=== PATIENT | male | born 1965 | race Two or more races ===

== ENCOUNTER 2024-11-30 10:28 | Outpatient (REF) | payer OTHER, SELFPAY ==
[2024-11-30 18:19] LABS: MANUAL DIFF FLAG NO
[2024-11-30 18:40] LABS: Appearance Urine Turbid; Glucose Urine UA Negative (Negative); Hematocrit 46.1 % (42.0-52.0); Hemoglobin 15.3 g/dl (14.0-18.0); Imm Gran Abs Auto 0.03 X10*3/uL (0.00-0.03); Imm Gran Pct Auto 0.4 % (0.0-0.4); Lymphocytes Absolute Auto 1.8 X10*3/uL (1.2-4.9); Mean Corpuscular HGB Conc 33.2 g/dl (31.0-36.0); Mean Corpuscular Hemoglobin 26.7 pg (27.0-33.0); Mean Corpuscular Volume 80.6 fL (80.0-98.0); NRBC Abs Auto 0.000 X10*3/uL (0.0-0.012); NRBC Pct Auto 0.0 /100WBC (0.0-0.2); PH 5.0 (5.0-9.0); Platelet Count 146 X10*3/uL (160-400); Red Blood Count 5.72 X10*6/uL (4.60-5.80); Specific Gravity - Urine 1.025 (1.005-1.025); White Blood Count 7.4 X10*3/uL (4.8-10.8)
[2024-11-30 18:51] LABS: Alanine Aminotransferase 55 U/L (0-40); Albumin Level 4.3 g/dL (3.5-5.0); Alkaline Phosphatase 67 U/L (39-117); Anion Gap 13 (12-20); Aspartate Amino Transferase 46 U/L (5-37); Blood Urea Nitrogen 17 mg/dL (9-16); Calcium 9.1 mg/dL (8.4-10.2); Carbon Dioxide 21 mmol/L (22-29); Chloride 109 mmol/L (96-108); Cholesterol 130 mg/dL (<200); Estimated Glomerular Filt Rate > 60; HDL Cholesterol 38 mg/dL (>40); Magnesium 2.0 mg/dL (1.6-2.6); Potassium 4.1 mmol/L (3.3-5.1); Sodium 139 mmol/L (135-145); Total Protein 7.6 g/dL (6.5-8.0); Triglycerides 79 mg/dL (<150)
[2024-12-01 07:30] LABS: Total Hemoglobin (HGBA1C) 3956.0489 umol/L
[2024-12-01 08:47] LABS: HBsAGNum1 0.56 S/CO (0.00-0.99); HIV Num 1 0.05 S/CO (0.00-0.99); Hepatitis B Surface Antigen Negative (Negative); ~HepC Num1 14.75 S/CO (0.00-0.79); ~Hepatitis B Surface Antibody REACTIVE (Nonreactive); ~Hepatitis C Antibody Reactive (Nonreactive)
[2024-12-04 09:28] LABS: VITAMIN D (1,25 OH) D3 22 pg/mL; Vit D (1,25-Dihydroxy) Total 22 pg/mL (18-72); Vitamin D (1,25 OH) D2 <8 pg/mL
== END 2024-11-30 10:29 | disposition home or self-care (01) ==
LOC: HO.HKASLDS 10:28
PROVIDERS: PCP Student in an Organized Health Care Education/Training Program; Visit Provider Student in an Organized Health Care Education/Training Program
DX: Z76.89 Persons encountering health services in other specified circumstances (principal); Z01.89 Encounter for other specified special examinations; Z02.89 Encounter for other administrative examinations; I25.10 Atherosclerotic heart disease of native coronary artery without angina pectoris; E66.3 Overweight; I25.2 Old myocardial infarction; R00.1 Bradycardia, unspecified; R06.02 Shortness of breath; Z68.29 Body mass index [BMI] 29.0-29.9, adult; Z87.891 Personal history of nicotine dependence
CPT/HCPCS: 36415; 80053; 80061; 81003; 82652; 83036; 83735; 84443; 85025; 86706; 86803; 87340; 87389

== ENCOUNTER 2024-11-30 10:28 | Outpatient (AMB) | payer OTHER, SELFPAY ==
--- NOTE | 2024-11-30 10:38 | A.OFFPC_ITS ---
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 Crop Specialist Required: No Accompanied by: Self / Same As Patient Allergies No Known Allergies Allergy (Verified 11/30/24 10:41) Tobacco use date assessed: 11/30/24 Dental Screening Dental Screen Date: 11/30/24 Did you have a dental visit in the last 12 months?: Yes Did you have a dental problem in the last 6 months where you did not have access to dental care?: No Was dental information given to patient?: Patient has dentist HPI HPI Comments History of Present Illness Details History of Present Illness The patient is a 59-year-old male presenting with follow-up for coronary artery disease, recent inferior STEMI, respiratory symptoms, and health maintenance concerns. Coronary Artery Disease (CAD): - Recent inferior STEMI managed with pro ximal RCA stent. Awaiting further intervention. Inferior ST-Elevation Myocardial Infarction (STEMI): - Managed with RCA stent following diagn osis. Gastroesophageal Reflux Disease (GERD): - Controlled with omeprazole. Hyperlipidemia: - Treated with atorvastatin. Prediabetes: - Monitoring in place. Possible Obstructive Sleep Apnea (GONZALES): - Sleep study recommended to confirm analilia gnosis. nicotine dependence history quit [facility] Health Maintenance - Outpatient sleep study recommended for possible obstructive sleep apnea. - Cardiovascular health continues to be supported through follow-up for staged PCI for further management of CAD. - Encouragement for smoking cessation co ntinues with support through nicotine replacement therapy. Review of Systems - Respiratory: Reports dyspnea on exerti on and during sleep. Denies chest pain. 10-point ROS reviewed and negative excep t as noted in HPI Allergies - No known allergies reported. Medications - Clopidogrel 75 mg for CAD. - Aspirin 81 mg for CAD. - Atorvastatin 80 mg for hyperlipidemia. - Omeprazole 40 mg for GERD. - Nicotine patch 7 mg for smoking cessat ion. Medication History - Ticagrelor 90 mg, discontinued due to dyspnea. Current Substance Use - Tobacco: Smokes approximately one pack per week. Substance Use History - Tobacco: History of smoking since the age of 15, with current use reported at approximately one pack per week. Past Medical History - Coronary Artery Disease (CAD) - Inferior ST-Elevation Myocardial Infar ction (STEMI) - Gastroesophageal Reflux Disease (GERD) - Hyperlipidemia - Prediabetes Past Surgical History - Proximal RCA stent placement. 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 - Substance Use: History and current tob acco use is documented. Physical Exam General: No apparent distress. Alert and oriented x 3. Patient reports a history of severe heart attack on November 03 and has been experiencing shortness of breath since then. Head: Normocephalic, atraumatic Eyes: Pupils equal, round, and reactive to light. Extraocular movements intact Throat: O ropharynx clear. Mucus membranes moist Neck: Supple. No l eft anterior descending artery distention. No jugular vein distention. No bruit. Cardiovascular: Regular rate and rhythm. Normal S1 and S2. History of myocardial infarction (VA) with stent placement. Patient reports tenderness in the chest area. Cardiology referral planned for potential second stent placement. murmurs, rubs, or gallops Lungs: Clear to auscultation bilaterally. Breath sounds equal bilaterally. No rales, ronchi, or wheezes. Patient reports shortness of breath and has a history of smoking. Pulmonary function test and sleep study planned. Abdomen: Non-tender. Non-distended. Bowel sounds auscultated. No hepatosplenomegaly. No mass/rebound/guarding Extremities: No c lubbing, cyanosis, and edema. 2+ pulses Neuro: Central nerves II-XII grossly intact. Motor/sensory intact. Reflexes 2. Gait normal Skin: Warm, dry, and intact. No rash. Discussion Notes I emphasized the patient's need for follow-up regarding coronary artery disease with cardiology to complete staged PCI to optimize vascular health. The patient was informed about the recommendation for a sleep study due to the possibility of obstructive sleep apnea, given his ongoing respiratory concerns. We discussed the adaptation from ticagrelor to clopidogrel due to dyspnea and encouraged continued aspirin and atorvastatin for coronary artery disease management. I advised smoking cessation benefits and discussed the continued use of nicotine patches for support. Follow-up appointments were arranged, and the appropriate referrals were made. Plan 1. Coronary Artery Disease (Cad) - Continue aspirin and atorvastatin. - Schedule follow-up for staged PCI. 2. Gastroesophageal Reflux Disease (Gerd ) - Continue omeprazole 40 mg daily. 3. Hyperlipidemia - Keep on atorvastatin 80 mg. 4. Tobacco Use - Smoking cessation encouraged; use of n icotine patch to continue. 5. Inferior St-Elevation Myocardial Infa rction (Stemi) - Early Childhood Education Specialist follow-up critical for tr eatment plan. 6. Possible Obstructive Sleep Apnea (Gonzales ) - Recommend outpatient sleep study. 7. Gastroesophageal Reflux Disease Gerd - Continue management with omeprazole. 8. Possible Obstructive Sleep Apnea Gonzales - Arrangements made for a sleep study. Treatment Summary Anticapatory Guidance - Lifestyle modifications suggested incl ude tobacco cessation strategies and adherence to cardiovascular health protocols. - Awareness of respiratory symptoms and compliance with follow-up tests are emphasized. Patient Instructions - Take aspirin, atorvastatin, and omepra zole as directed by your doctor. - See a life enrichment specialist soon to check t he stents. - Schedule an overnight sleep test to [facility] for sleep apnea. - Work towards quitting smoking and keep using the nicotine patch as recommended. [facility] Family History (Updated 11/30/24 @ 11:01 by Janeen Briggs MA) Father Cerebral hemorrhage Mother Heart disease Social History (Updated 11/30/24 @ 10:43 by Janeen Briggs MA) Housing: Apartment Alcohol intake: current Alcohol intake frequency: does not drink Patient Tobacco Use Status: Never used Tobacco service: No Current occupational status: employed Cognitive needs: No Hearing needs: No Vision needs: Yes (contact) Questionnaire PHQ-9 Over the last 2 weeks, how often have you been bothered by any of the following problems? 1. Little interest or pleasure in doing things: not at all 2. Feeling down, depressed, or hopeless: not at all 3. Trouble falling or staying asleep, or sleeping too much: not at all 4. Feeling tired or having little energy: not at all 5. Poor appetite or overeating: not at all 6. Feeling bad about yourself - or that you are a failure or have let yourself or your family down: not at all 7. Trouble concentrating on things, such as reading the newspaper or watching television: not at all 8. Moving or speaking so slowly that other people could have noticed. Or the opposite - being so fidgety or restless that you have been moving around a lot more than usual: not at all 9. Thoughts that you would be better off or of hurting yourself in some way: not at all Total score: 0 Source: Developed by Drs. Rafal Stacy, Pilar hC, Cesar Chaudhry and colleagues, with an educational elsa from [employer]. Thrive Questionnaire Date Thrive assessed: 11/30/24 I am a: Patient What is your living situation today?: I have a steady place to live Within the past 12 months, did the food you bought not last and you didn't have the money to get more?: Never true Within the past 12 months, did you worry whether your food would run out before you got money to buy more?: Never true Do you have trouble paying for medicines?: No Do you have trouble getting transportation to medical appointments?: No Do you have trouble paying your heating and electricity bill?: No Do you have trouble taking care of your child, family member or friend?: No Do you have trouble with day-to-day activities such as bathing, preparing meals, shopping, managing finances, etc.?: No Are you currently unemployed and looking for a job?: No Are you interested in more education?: No Please select the resources that you would like help with: None Currently or been in a relationship where the following occur: No concerns reported THRIVE Score: 0 AUDIT C Alcohol Use Questionnaire (AUDIT-C) 1. How often do you have a drink containing alcohol?: Never 3. How often do you have six or more drinks on one occasion?: Never Total Score: 0 DEEPIKA-7 AMB Questionnaire DEEPIKA-7 Date DEEPIKA - 7 assessed: 11/30/24 Feeling nervous, anxious, or on edge: 0 = Not at all Not being able to stop or control worryin = Not at all Worrying too much about different things: 0 = Not at all Trouble relaxin = Not at all Being so restless that it is hard to sit still: 0 = Not at all Becoming easily annoyed or irritable: 0 = Not at all Feeling afraid as if something awful might happen: 0 = Not at all Total DEEPIKA-7 score (0-4 normal; 5-9 mild; 10-14 moderate; 15-21 severe): 0 Source: Developed by Drs. Rafal Stacy, Pilar Ch, Cesar Chaudhry and colleagues, with an educational elsa from [employer]. Physical exam (Primary Care) Vital Signs: Last Vital Signs Temp 97.7 F 11/30/24 11:03 Pulse 58 11/30/24 11:03 Resp 16 11/30/24 11:03 BP 120/78 11/30/24 11:03 Pulse Ox 96 11/30/24 11:03 Oxygen Delivery Method Room Air 11/30/24 11:03 BMI result Body Mass Index 29.9 Tobacco/Smoking Status: Tobacco use Status Tobacco use date assessed 11/30/24 11/30/24 10:46 Patient Tobacco Use Status Never used Tobacco 11/30/24 10:46 PHQ-9: PHQ-9 Score PHQ-9: Total score 0 11/30/24 10:46 Thrive Assessment: Date of Thrive Assessment Date Thrive assessed 11/30/24 11/30/24 10:46 Currently or been in a relationship where the following occur: No concerns reported Coding Level of Care Code New Pt Level 3 (27207) Diagnoses Encounter to establish care Z76.89 Routine lab draw Z01.89 Overweight (BMI 25.0-29.9) E66.3 CAD in [place] artery I25.10 History of myocardial infarct at age less than 60 years I25.2 Bradycardia R00.1 Encounter for completion of form with patient Z02.89 Shortness of breath R06.02 Dyspnea type: shortness of breath History of nicotine dependence Z87.891 Assessment & Plan Assessment & Plan (1) Encounter to establish care: Code(s): Z76.89 - Persons encountering health services in other specified circumstances (2) Routine lab draw: Code(s): Z01.89 - Encounter for other specified special examinations (3) Overweight (BMI 25.0-29.9): Code(s): E66.3 - Overweight (4) CAD in [place] artery: Code(s): I25.10 - Atherosclerotic heart disease of [place] coronary artery without angina pectoris (5) History of myocardial infarct at age less than 60 years: Code(s): I25.2 - Old myocardial infarction (6) Bradycardia: Code(s): R00.1 - Bradycardia, unspecified (7) Encounter for completion of form with patient: Code(s): Z02.89 - Encounter for other administrative examinations (8) Dyspnea: Code(s): R06.00 - Dyspnea, unspecified Qualifiers: Dyspnea type: shortness of breath Qualified Code(s): R06.02 - Shortness of breath (9) History of nicotine dependence: Code(s): Z87.891 - Personal history of nicotine dependence Plan Orders: Orders Complete Blood Count Auto Diff Today Z - Persons encountering health services in other specified circumstances Comprehensive Met. Panel Today Z. - Persons encountering health services in other specified circumstances Lipid Panel Today - Persons encountering health services in other specified circumstances Vitamin D 1,25 dihydroxy Today . - Persons encountering health services in other specified circumstances PFT pulmonary function test Today R06.02 - Shortness of breath, Z. - Persons encountering health services in other specified circumstances Hemoglobin A1c Today . - Persons encountering health services in other specified circumstances Hepatitis B Surface Antibody Today . - Persons encountering health services in other specified circumstances Hepatitis B Surface Antigen Today . - Persons encountering health services in other specified circumstances Hepatitis C Antibody Today . - Persons encountering health services in other specified circumstances HIV Ab/Ag Today . - Persons encountering health services in other specified circumstances Magnesium Today Z. - Persons encountering health services in other specified circumstances TSH reflex Free T4 Today . - Persons encountering health services in other specified circumstances UA CC w/rflx Micro + Cult Today Z - Persons encountering health services in other specified circumstances Referrals Sleep Medicine Referral I25.10 - Atherosclerotic heart disease of [place] coronary artery without angina pectoris, I25.2 - Old myocardial infarction, R06.02 - Shortness of breath, Z76.89 - Persons encountering health services in other specified circumstances Cardiology Referral I25.10 - Atherosclerotic heart disease of [place] coronary artery without angina pectoris, I25.2 - Old myocardial infarction, R00.1 - Bradycardia, unspecified, Z76.89 - Persons encountering health services in other specified circumstances Medications: New atorvastatin (Lipitor) 80 mg PO BEDTIME 1 tab 0RF
[2024-11-30 11:03] VITALS: BP 120/78; PULSE 58; RESP 16; TEMP 36.5; O2SAT 96; BMI 29.9
--- OUTSIDE RECORDS SUMMARY | 2024-11-30 12:45 | XMS_ITS | Patient Health Record ---
Author Organization [facility] [place] Address [address] [address] [facility] [address] [place] [address] Support Name Relationship Address Phone DALIA BAEZ Guarantor Unknown [phone] Reason For Referral No Information Plan Of Treatment No Information Insurance Providers Payer Name Payer Address Payer Phone Subscriber Number Group Number Insured Name Patient Relationship to Insured Coverage Start Date Coverage End Date [facility] [address] [place] [address] [phone] [id number] DALIA BAEZ Self - patient is the insured
--- OUTSIDE RECORDS SUMMARY | 2024-11-30 12:46 | XMS_ITS | Patient Health Record ---
Author Organization [facility] Address [address] [place] [address] Care Team Providers Care Candy Vendor Name Role Phone Raymon Castle Primary Care Provider Reason For Referral No Information Plan Of Treatment No Information Insurance Providers Payer Name Payer Address Payer Phone Subscriber Number Group Number Insured Name Patient Relationship to Insured Coverage Start Date Coverage End Date [place] C3 [address] [place], [place] [id number] [place] Self - patient is the insured 2
== END 2024-11-30 11:44 | disposition home or self-care (01) ==
LOC: HO.HMCFMS 10:28
PROVIDERS: PCP Student in an Organized Health Care Education/Training Program; Visit Provider Student in an Organized Health Care Education/Training Program
DX: R10.32 Left lower quadrant pain (principal); I25.10 Atherosclerotic heart disease of native coronary artery without angina pectoris; I25.2 Old myocardial infarction; R00.1 Bradycardia, unspecified; E66.3 Overweight; Z87.891 Personal history of nicotine dependence

== ENCOUNTER 2024-12-09 13:29 | Outpatient (REF) | payer OTHER, SELFPAY ==
[2024-12-10 18:09] LABS: HCV RNA PCR Qn <1.18 NOT DETECTED Log IU/mL (NOT DETECTED); HCV RNA PCR Qn <15 NOT DETECTED IU/mL (NOT DETECTED)
== END 2024-12-09 13:30 | disposition home or self-care (01) ==
LOC: HO.HKASLDS 13:29
PROVIDERS: PCP Student in an Organized Health Care Education/Training Program; Visit Provider Student in an Organized Health Care Education/Training Program
DX: R76.8 Other specified abnormal immunological findings in serum (principal); E11.9 Type 2 diabetes mellitus without complications; I25.2 Old myocardial infarction; R71.8 Other abnormality of red blood cells; D69.6 Thrombocytopenia, unspecified; D72.10 Eosinophilia, unspecified; R73.09 Other abnormal glucose; R74.8 Abnormal levels of other serum enzymes; E78.6 Lipoprotein deficiency
CPT/HCPCS: 36415; 87522

== ENCOUNTER 2024-12-09 13:29 | Outpatient (AMB) | payer OTHER, SELFPAY ==
--- NOTE | 2024-12-09 13:30 | A.OFFPC_ITS ---
Vital Signs 12/09/24 13:34 Height 5 ft 4.76 in Weight 183 lb 4 oz BMI 30.7 BP 130/80 Blood Pressure Location Lt brachial Position Sitting Respiration 16 Pulse 65 Pulse Source Pulse Oximeter Temp 98.3 F Temp Source Oral Pulse Oximetry (%) 96 Oxygen Delivery Method Room Air Intake Visit Reasons: 1 week follow up Intake Note: pt had a heart attack. Director Funds Development Required: No Accompanied by: Self / Same As Patient Allergies No Known Allergies Allergy (Verified 12/09/24 13:30) Tobacco use date assessed: 11/30/24 Dental Screening Dental Screen Date: 11/30/24 Did you have a dental visit in the last 12 months?: Yes Did you have a dental problem in the last 6 months where you did not have access to dental care?: No Was dental information given to patient?: Patient has dentist HPI HPI Comments History of Present Illness Details History of Present Illness The patient is a 59-year-old male presenting with diabetes management and assessment for potential hepatitis C reactivity. Type 2 Diabetes Mellitus: - Elevated A1c at 6.5%; random glucose a t 124 mg/dL. - Previous medications include aspirin, atorvastatin, and clopidogrel. - Concerns over management of diabetes p ost-myocardial infarction with agreed introduction of metformin. Hepatitis C (history of): - Previous positive test for hepatitis C ; current status unclear, pending reevaluation. - Asymptomatic and without indications o f active liver disease. Status Post Myocardial Infarction: - Currently on aspirin, atorvastatin, an d clopidogrel. - No reported angina or cardiac symptoms . Review of Systems - General: Reports feelings of tiredness ; denies changes in daily activity levels. - HEENT: Denies headache, vision changes , or hearing loss. - Respiratory: Denies dyspnea, cough, or wheezing. - Cardiovascular: Denies chest pain or p alpitations; reports past myocardial infarction. - Gastrointestinal: Denies abdominal leonides n or change in bowel habits. - Genitourinary: Denies dysuria or hemat uria. - Endocrine: Reports new diagnosis of di abetes. - Skin: Denies rashes or lesions. - Neuro: Denies dizziness or changes in cognition. - Psych: Reports some anxiety around hea lth issues; denies depression or significant mood disorders. 10-point ROS reviewed and negative excep t as noted in HPI Past Medical History - Myocardial Infarction - Medications: aspirin, atorvastatin, cl opidogrel Health Maintenance - Cardiology follow-up pending. - Scheduled for a sleep medicine consult ation and pulmonary function tests. - Laboratory monitoring for diabetes man agement every three months recommended. Physical Exam - General- Well-appearing, in no acute d istress. - Vitals- Within normal limits. - HEENT- Normocephalic, atraumatic. PERR LA, EOMI. Clear conjunctiva, anicteric sclera. - Neck- Supple, no lymphadenopathy. - Cardiovascular- Regular rate and rhyth m, normal S1/S2. No murmurs, rubs, or gallops. - Respiratory- Lungs clear to auscultati on bilaterally. - Abdomen- Soft, non-tender, non-distend ed. Normoactive bowel sounds. - MSK- Full range of motion, normal gait . - Skin- Warm, dry, intact. - Neuro- Alert and oriented x3. Cranial nerves II-XII intact. - Psych- Appropriate mood and affect. Plan 1. encounter for laboratory results 2. red blood cell abnormality 3. low platelet count 4. eosinophilia 5. abnormal chemistry 6. elevated glucose 7. diabetes type 2 - Start metformin, monitor blood glucose , and adjust lifestyle accordingly. 8. elevated liver enzymes 9. low HDL 10. hepatitis-C positive conuct further blood analysis for active status and consider liver ultrasound. 11. Status Post Myocardial Infraction - Maintain current medications and monit or cardiac health. Discussion Notes I discussed with the patient the diagnosis of Type 2 Diabetes Mellitus and the necessity of introducing metformin as a treatment. I explained how metformin works to manage blood glucose levels and addressed potential side effects. We reviewed the implications of the elevated A1c level and the importance of lif estyle modifications, including proper diet and exercise. Regarding hepatitis C, I informed the patient that additional blood tests would determine the current status. If active hepatitis C is present, I would evaluate and treat accordingly. I reassured the patient that their cardiovascular medications would not interact with the new diabetes treatment. We also scheduled blood monitoring every three months to assess diabetes management. An ultrasound of the liver is suggested but pending further bloodwork outcomes. Follow-up discussions included liver enzyme monitoring due to the patient's history of hepatitis C. Patient Instructions - Begin taking metformin as prescribed, one in the morning and one at night. - Monitor blood sugar levels as directed and report any unusual symptoms. - Maintain a balanced diet and increase physical activity?consider a maple products maker consult for guidance. - Provide a blood sample for hepatitis C evaluation today. - Await contact from the clinic to sched ule an ultrasound for your liver. - Continue current cardiac medications a nd monitor for excessive bruising or bleeding. - Follow up with the clinic in three mon ths for diabetes management assessment. - Contact the clinic with any concerns a bout new medication side effects or unexpected symptoms. PFSH Family History Father Cerebral hemorrhage Mother Heart disease Social History Housing: Apartment Alcohol intake: current Alcohol intake frequency: does not drink Patient Tobacco Use Status: Never used Tobacco service: No Current occupational status: employed Cognitive needs: No Hearing needs: No Vision needs: Yes (contact) Questionnaire PHQ-9 Over the last 2 weeks, how often have you been bothered by any of the following problems? 1. Little interest or pleasure in doing things: several days 2. Feeling down, depressed, or hopeless: not at all 3. Trouble falling or staying asleep, or sleeping too much: nearly every day 4. Feeling tired or having little energy: several days 5. Poor appetite or overeating: not at all 6. Feeling bad about yourself - or that you are a failure or have let yourself or your family down: not at all 7. Trouble concentrating on things, such as reading the newspaper or watching television: several days 8. Moving or speaking so slowly that other people could have noticed. Or the opposite - being so fidgety or restless that you have been moving around a lot more than usual: not at all 9. Thoughts that you would be better off or of hurting yourself in some way: not at all Total score: 6 Source: Developed by Drs. Rafal Stacy, Pilar Ch, Cesar Chaudhry and colleagues, with an educational elsa from [employer]. Thrive Questionnaire Date Thrive assessed: 11/30/24 I am a: Patient What is your living situation today?: I have a steady place to live Within the past 12 months, did the food you bought not last and you didn't have the money to get more?: Often true Within the past 12 months, did you worry whether your food would run out before you got money to buy more?: Often true Do you have trouble paying for medicines?: I choose not to answer this question Do you have trouble getting transportation to medical appointments?: No Do you have trouble paying your heating and electricity bill?: No Do you have trouble taking care of your child, family member or friend?: No Are you currently unemployed and looking for a job?: No Are you interested in more education?: Yes Please select the resources that you would like help with: None Currently or been in a relationship where the following occur: No concerns reported THRIVE Score: 2 AUDIT C Alcohol Use Questionnaire (AUDIT-C) 1. How often do you have a drink containing alcohol?: Never 3. How often do you have six or more drinks on one occasion?: Never Total Score: 0 DEEPIKA-7 AMB Questionnaire DEEPIKA-7 Date DEEPIKA - 7 assessed: 11/30/24 Feeling nervous, anxious, or on edge: 1 = Several days Not being able to stop or control worryin = More than half the days Worrying too much about different things: 1 = Several days Trouble relaxin = Not at all Being so restless that it is hard to sit still: 0 = Not at all Becoming easily annoyed or irritable: 0 = Not at all Feeling afraid as if something awful might happen: 1 = Several days Total DEEPIKA-7 score (0-4 normal; 5-9 mild; 10-14 moderate; 15-21 severe): 5 Source: Developed by Drs. Rafal Stacy, Pilar Ch, Cesar Chaudhry and colleagues, with an educational elsa from [employer]. Physical exam (Primary Care) Vital Signs: Last Vital Signs Temp 98.3 F 12/09/24 13:34 Pulse 65 12/09/24 13:34 Resp 16 12/09/24 13:34 BP 130/80 12/09/24 13:34 Pulse Ox 96 12/09/24 13:34 Oxygen Delivery Method Room Air 12/09/24 13:34 BMI result Body Mass Index 30.7 Tobacco/Smoking Status: Tobacco use Status Tobacco use date assessed 11/30/24 12/09/24 13:31 Patient Tobacco Use Status Never used Tobacco 12/09/24 13:31 PHQ-9: PHQ-9 Score PHQ-9: Total score 6 12/09/24 13:37 Thrive Assessment: Date of Thrive Assessment Date Thrive assessed 11/30/24 12/09/24 13:31 Currently or been in a relationship where the following occur: No concerns reported Coding Level of Care Code New Pt Level 3 (09539) Diagnoses Diabetes type 2 E11.9 Hepatitis C antibody detected R76.8 Status post myocardial infarction I25.2 Red blood cell abnormality R71.8 Low platelet count D69.6 Eosinophilia D72.10 Elevated glucose R73.09 Elevated liver enzymes R74.8 Low HDL (under 40) E78.6 Assessment & Plan Assessment & Plan (1) Diabetes type 2: Code(s): E11.9 - Type 2 diabetes mellitus without complications (2) Hepatitis C antibody detected: Code(s): R76.8 - Other specified abnormal immunological findings in serum (3) Status post myocardial infarction: Code(s): I25.2 - Old myocardial infarction (4) Red blood cell abnormality: Code(s): R71.8 - Other abnormality of red blood cells (5) Low platelet count: Code(s): D69.6 - Thrombocytopenia, unspecified (6) Eosinophilia: Code(s): D72.10 - Eosinophilia, unspecified (7) Elevated glucose: Code(s): R73.09 - Other abnormal glucose (8) Elevated liver enzymes: Code(s): R74.8 - Abnormal levels of other serum enzymes (9) Low HDL (under 40): Code(s): E78.6 - Lipoprotein deficiency Plan Orders: Orders HCV RNA QN PROG TO GENOTYPE Today R76.8 - Other specified abnormal immunological findings in serum US abdomen limited Today R74.8 - Abnormal levels of other serum enzymes, R76.8 - Other specified abnormal immunological findings in serum Medications: New metformin 500 mg PO BID 60 tabs 2RF
[2024-12-09 13:34] VITALS: BP 130/80; PULSE 65; RESP 16; TEMP 36.8; O2SAT 96; BMI 30.7
== END 2024-12-09 13:55 | disposition home or self-care (01) ==
LOC: HO.HMCFMS 13:30
PROVIDERS: PCP Student in an Organized Health Care Education/Training Program; Visit Provider Student in an Organized Health Care Education/Training Program
DX: E11.9 Type 2 diabetes mellitus without complications (principal); R76.8 Other specified abnormal immunological findings in serum; I25.2 Old myocardial infarction; R71.8 Other abnormality of red blood cells; D69.6 Thrombocytopenia, unspecified; D72.10 Eosinophilia, unspecified; R73.09 Other abnormal glucose; R74.8 Abnormal levels of other serum enzymes; E78.6 Lipoprotein deficiency

== ENCOUNTER 2024-12-28 09:50 | Outpatient (AMB) | payer OTHER, SELFPAY ==
[2024-12-28 09:53] VITALS: BP 138/85; PULSE 62; RESP 16; TEMP 36.6; O2SAT 97; BMI 30.4
--- NOTE | 2024-12-28 09:53 | MHC.PC.OV ---
Vital Signs 12/28/24 09:53 12/28/24 09:56 Height 5 ft 4.76 in 5 ft 4.76 in Weight 181 lb 4 oz BMI 30.4 BP 138/85 Blood Pressure Location Rt brachial Position Sitting Respiration 16 Pulse 62 Pulse Source Pulse Oximeter Temp 97.8 F Temp Source Oral Pulse Oximetry (%) 97 Oxygen Delivery Method Room Air Intake Visit Reasons: r/s from 9am Intake Note: pt had a heart attack. Ceo & Board Director Required: No Accompanied by: Self / Same As Patient Allergies No Known Allergies Allergy (Verified 12/28/24 10:06) Tobacco use date assessed: 12/28/24 Dental Screening Dental Screen Date: 12/28/24 Did you have a dental visit in the last 12 months?: Yes Did you have a dental problem in the last 6 months where you did not have access to dental care?: No Was dental information given to patient?: Patient has dentist [facility] Family History Father Cerebral hemorrhage Mother Heart disease Social History Housing: Apartment Alcohol intake: current Alcohol intake frequency: does not drink Patient Tobacco Use Status: Never used Tobacco service: No Current occupational status: employed Cognitive needs: No Hearing needs: No Vision needs: Yes (contact) Questionnaire PHQ-9 Over the last 2 weeks, how often have you been bothered by any of the following problems? 1. Little interest or pleasure in doing things: several days 2. Feeling down, depressed, or hopeless: not at all 3. Trouble falling or staying asleep, or sleeping too much: nearly every day 4. Feeling tired or having little energy: several days 5. Poor appetite or overeating: not at all 6. Feeling bad about yourself - or that you are a failure or have let yourself or your family down: not at all 7. Trouble concentrating on things, such as reading the newspaper or watching television: several days 8. Moving or speaking so slowly that other people could have noticed. Or the opposite - being so fidgety or restless that you have been moving around a lot more than usual: not at all 9. Thoughts that you would be better off or of hurting yourself in some way: not at all Total score: 6 Source: Developed by Drs. Rafal Stacy, Pilar Ch, Cesar Chaudhry and colleagues, with an educational elsa from [employer]. Thrive Questionnaire Date Thrive assessed: 12/28/24 I am a: Patient What is your living situation today?: I have a steady place to live Within the past 12 months, did the food you bought not last and you didn't have the money to get more?: Often true Within the past 12 months, did you worry whether your food would run out before you got money to buy more?: Often true Do you have trouble paying for medicines?: I choose not to answer this question Do you have trouble getting transportation to medical appointments?: No Do you have trouble paying your heating and electricity bill?: No Do you have trouble taking care of your child, family member or friend?: No Do you have trouble with day-to-day activities such as bathing, preparing meals, shopping, managing finances, etc.?: I choose not to answer this question Are you currently unemployed and looking for a job?: No Are you interested in more education?: Yes Please select the resources that you would like help with: None Currently or been in a relationship where the following occur: No concerns reported THRIVE Score: 2 AUDIT C Alcohol Use Questionnaire (AUDIT-C) 1. How often do you have a drink containing alcohol?: Never 3. How often do you have six or more drinks on one occasion?: Never Total Score: 0 DEEPIKA-7 AMB Questionnaire DEEPIKA-7 Date DEEPIKA - 7 assessed: 12/28/24 Feeling nervous, anxious, or on edge: 1 = Several days Not being able to stop or control worryin = More than half the days Worrying too much about different things: 1 = Several days Trouble relaxin = Not at all Being so restless that it is hard to sit still: 0 = Not at all Becoming easily annoyed or irritable: 0 = Not at all Feeling afraid as if something awful might happen: 1 = Several days Total DEEPIKA-7 score (0-4 normal; 5-9 mild; 10-14 moderate; 15-21 severe): 5 Source: Developed by Pilar España Kurt Kroenke and colleagues, with an educational elsa from [employer]. Physical exam (Primary Care) Vital Signs: Last Vital Signs Temp 97.8 F 12/28/24 09:53 Pulse 62 12/28/24 09:53 Resp 16 12/28/24 09:53 BP 138/85 12/28/24 09:53 Pulse Ox 97 12/28/24 09:53 Oxygen Delivery Method Room Air 12/28/24 09:53 BMI result Body Mass Index 30.4 Tobacco/Smoking Status: Tobacco use Status Tobacco use date assessed 12/28/24 12/28/24 10:01 Patient Tobacco Use Status Never used Tobacco 12/28/24 09:54 PHQ-9: PHQ-9 Score PHQ-9: Total score 6 12/28/24 10:08 Thrive Assessment: Date of Thrive Assessment Date Thrive assessed 12/28/24 12/28/24 10:01 Currently or been in a relationship where the following occur: No concerns reported Coding
--- NOTE | 2024-12-28 10:17 | A.OFFPC_ITS ---
Vital Signs 12/28/24 09:53 Height 5 ft 4.76 in Weight 181 lb 4 oz BMI 30.4 BP 138/85 Blood Pressure Location Rt brachial Position Sitting Respiration 16 Pulse 62 Pulse Source Pulse Oximeter Temp 97.8 F Temp Source Oral Pulse Oximetry (%) 97 Oxygen Delivery Method Room Air Intake Visit Reasons: r/s from 9am Allergies No Known Allergies Allergy (Verified 12/28/24 10:06) Tobacco use date assessed: 11/30/24 Dental Screening Dental Screen Date: 11/30/24 HPI HPI Comments History of Present Illness Details History of Present Illness The patient is a 59-year-old male presenting for follow-up on hepatitis C status and diabetes management. Hepatitis C: - Previously diagnosed with hepatitis C, but current tests show no active virus. - Patient is referred to an infectious d isease specialist for further follow-up. Diabetes Mellitus: - Patient is managing diabetes with diet marisol changes and medication adherence. - Reports consuming blueberries and stra wberries to help manage blood sugar levels. Review of Systems 10-point ROS reviewed and negative excep t as noted in HPI Past Medical History - Hepatitis C: Previously diagnosed, cur rently no active virus - Diabetes Mellitus Health Maintenance - Referral to infectious disease special ist for hepatitis C follow-up - Dietary modifications for diabetes man agement Physical Exam General: Well-appearing, in no acute distress. Vital signs: Within normal limits. HEENT: Normocephalic, atraumatic. PERRLA, EOMI. Conjunctiva clear, sclera anicteric. Oropharynx clear, mucous membranes moist. TMs intact bilaterally. Neck: Supple, no lymphadenopathy, no thyromegaly, no JVD or carotid bruits. Cardiovascular: RRR, normal S1/S2, no murmurs, rubs, or gallops. Peripheral pulses 2+ and symmetric. No edema. Respiratory: Lungs clear to auscultation bilaterally, no wheezes, rales, or rhonchi. Normal effort. Abdomen: Soft, non-tender, non-distended. Normoactive bowel sounds. No hepatosplenomegaly, no masses. MSK: Full range of motion, no joint swelling or deformity. Normal gait. Skin: Warm, dry, intact. No rashes, lesions, or pallor. Neuro: Alert and oriented x3. Cranial nerves II-XII intact. Strength 5/5 throughout. Sensation intact. Reflexes 2+ symmetric. Normal coordination and gait. Psych: Appropriate mood and affect. Normal judgment and insight. Plan 1. Hepatitis C - No active virus detected; referral to infectious disease specialist for further evaluation. 2. Diabetes Mellitus - Continue dietary modifications and med ication adherence to manage blood sugar levels. Discussion Notes I discussed with the patient that his hepatitis C tests show no active virus, and I recommended a follow-up with an infectious disease specialist. We also talked about the importance of continuing dietary changes and medication adherence for diabetes management. Patient was informed and verbally consented to the use of an ambient scribe for clinic note documentation during this visit. Patient Instructions - Follow up with the infectious disease specialist as referred. - Continue dietary changes and take medi cations as prescribed for diabetes. Total time spent caring for the patient today was 30 minutes. This includes time spent before the visit reviewing the chart, time spent documenting, and time s pent reviewing laboratory results, diagnostic imaging, medications, performing a medically necessary evaluation, counseling on diagnoses, care coordination, ordering appropriate tests, ordering appropriate medications. [facility] Medical History (Updated 12/28/24 @ 10:25 by Wagner Lopez MD) History of hepatitis C Family History Father Cerebral hemorrhage Mother Heart disease Social History Housing: Apartment Alcohol intake: current Alcohol intake frequency: does not drink Patient Tobacco Use Status: Never used Tobacco service: No Current occupational status: employed Cognitive needs: No Hearing needs: No Vision needs: Yes (contact) Questionnaire Thrive Questionnaire Date Thrive assessed: 11/30/24 I am a: Patient What is your living situation today?: I have a steady place to live Within the past 12 months, did the food you bought not last and you didn't have the money to get more?: Often true Within the past 12 months, did you worry whether your food would run out before you got money to buy more?: Often true Do you have trouble paying for medicines?: I choose not to answer this question Do you have trouble getting transportation to medical appointments?: No Do you have trouble paying your heating and electricity bill?: No Do you have trouble taking care of your child, family member or friend?: No Do you have trouble with day-to-day activities such as bathing, preparing meals, shopping, managing finances, etc.?: I choose not to answer this question Are you currently unemployed and looking for a job?: No Are you interested in more education?: Yes Please select the resources that you would like help with: None Currently or been in a relationship where the following occur: No concerns reported THRIVE Score: 2 DEEPIKA-7 AMB Questionnaire DEEPIKA-7 Date DEEPIKA - 7 assessed: 11/30/24 Source: Developed by Drs. Rafal Stacy, Pilar Ch, Cesar Chaudhry and colleagues, with an educational elsa from [employer]. Physical exam (Primary Care) Vital Signs: Last Vital Signs Temp 97.8 F 12/28/24 09:53 Pulse 62 12/28/24 09:53 Resp 16 12/28/24 09:53 BP 138/85 12/28/24 09:53 Pulse Ox 97 12/28/24 09:53 Oxygen Delivery Method Room Air 12/28/24 09:53 BMI result Body Mass Index 30.4 Tobacco/Smoking Status: Tobacco use Status Tobacco use date assessed 11/30/24 12/28/24 10:18 Patient Tobacco Use Status Never used Tobacco 12/28/24 10:18 Thrive Assessment: Date of Thrive Assessment Date Thrive assessed 11/30/24 12/28/24 10:18 Currently or been in a relationship where the following occur: No concerns reported Coding Level of Care Code Est Pt Level 4 (60381) Diagnoses History of hepatitis C Z86.19 Type 2 diabetes mellitus E11.9 Elevated liver enzymes R74.8 Coronary arteriosclerosis in [place] artery I25.10 Assessment & Plan Assessment & Plan (1) History of hepatitis C: Code(s): Z86.19 - Personal history of other infectious and parasitic diseases Category: Medical (2) Type 2 diabetes mellitus: Code(s): E11.9 - Type 2 diabetes mellitus without complications (3) Elevated liver enzymes: Code(s): R74.8 - Abnormal levels of other serum enzymes Plan: Pending abdominal ultrasound (4) Coronary arteriosclerosis in [place] artery: Code(s): I25.10 - Atherosclerotic heart disease of [place] coronary artery without angina pectoris Plan: Has scheduled cardiac stenting coming up Plan Orders: Referrals Infectious Disease Referral Z86.19 - Personal history of other infectious and parasitic diseases
== END 2024-12-28 10:36 | disposition home or self-care (01) ==
LOC: HO.HMCFMS 09:51
PROVIDERS: PCP Student in an Organized Health Care Education/Training Program; Visit Provider Student in an Organized Health Care Education/Training Program
DX: Z86.19 Personal history of other infectious and parasitic diseases (principal); E11.9 Type 2 diabetes mellitus without complications; R74.8 Abnormal levels of other serum enzymes; I25.10 Atherosclerotic heart disease of native coronary artery without angina pectoris

== ENCOUNTER 2025-01-06 09:45 | Outpatient (AMB) | payer OTHER, SELFPAY ==
--- NOTE | 2025-01-06 09:47 | MHC.OFFVIS ---
Vital Signs 01/06/25 09:58 Height 5 ft 4 in Weight 188 lb BMI 32.3 Pulse 64 Pulse Source Pulse Oximeter Pulse Oximetry (%) 98 Oxygen Delivery Method Room Air Intake Visit Reasons: reff/Hep C appointment. Allergies No Known Allergies Allergy (Verified 01/06/25 09:59) HPI Comments Details: History of Present Illness The patient is a 59-year-old male presenting for the evaluation and management of Hepatitis C. Following lab work on 12/09, he learned of his Hepatitis C positivity, although his viral load is undetectable, indicating self-resolution. His medical history also reflects Hepatitis B immunity, as demonstrated by a reactive Hepatitis B antibody result and a negative Hepatitis B surface antigen test. Reported exposure to Hepatitis C occurred in the past through a needle-stick incident during occupational activities. Currently, he denies any symptoms of Hepatitis C infection and confirms an absence of risk factors for reinfection, as he no longer has exposure to needles. His HIV status is nonreactive. Review of Systems - General: Reports feeling well. - Hepatic: Denies symptoms associated with liver dysfunction. - Immunologic: Reports stable health. - Infectious Disease: Denies symptoms suggestive of active Hepatitis C or HIV. Physical Exam - Vitals- Stable - General- Appears well - Head, Eyes, Nose, Throat (HENT)- Pupils round, reactive. - Respiratory- Lungs clear - Cardiovascular- Heart rhythm regular - Gastrointestinal- Abdomen soft, non-tender - Musculoskeletal- Extremities non-nervous, non-focal - Dermatologic- Skin clear Results - Labs: - Hepatitis C viral load: Undetectable (12/09) - Hepatitis B surface antigen: Negative - Hepatitis B antibody: Reactive - HIV: Nonreactive Plan Patient was informed and verbally consented to the use of an ambient scribe for clinic note documentation during this visit. 1. Hepatitis C Self-Resolution The patient's Hepatitis C viral load is currently undetectable, indicating self-resolution. There are no active symptoms, and no treatment is indicated at this time. Monitoring viral load every six months is advised to check for possible reinfection, though the patient reports no current risk factors. 2. Hepatitis B Immunity The patient's test results are consistent with immunity to Hepatitis B, shown by reactive Hepatitis B antibodies and a negative Hepatitis B surface antigen. No additional action is required. Discussion Notes I discussed with the patient the implications of his Hepatitis C viral load being undetectable, suggesting self-resolution of the infection. He is part of the minority for whom this occurs naturally. We explored the lack of current risk factors for reinfection and the option to monitor his viral load periodically. The patient expressed understanding and agreement with avoiding treatment at present in the absence of active infection. Follow-up viral load checks every six months were suggested, considering his health status and lifestyle changes that diminish his risk of reexposure. Medical Decision Making This case involves a patient with self-resolving Hepatitis C, confirmed through an undetectable viral load. The immune response and resolution are uncommon but require no immediate treatment. Hepatitis B immunity is noted, likely due to prior exposure or vaccination. The avoidance of potential exposure means Hepatitis B poses no current health threat. I decided on monitoring his viral load every six months, given the current absence of exposure risks and potential changes in his condition. The goal is to ensure early detection of any changes suggestive of reinfection. Patient Instructions - You don't need any treatment for Hepatitis C right now. - We'll check your Hepatitis C viral load regularly, every six months. - Let me know if you think you might have been exposed to Hepatitis C again or if you have any new symptoms. - There's no need for concern about Hepatitis B since your antibodies show immunity. - Keep your follow-up appointments to track your health. [facility] Medical History (Updated 12/28/24 @ 10:25 by Wagner Lopez MD) History of hepatitis C Family History Father Cerebral hemorrhage Mother Heart disease Social History Housing: Apartment Alcohol intake: current Alcohol intake frequency: does not drink Patient Tobacco Use Status: Never used Tobacco service: No Current occupational status: employed Cognitive needs: No Hearing needs: No Vision needs: Yes (contact) Physical Exam Vital Signs: Last Vital Signs Pulse 64 01/06/25 09:58 Pulse Ox 98 01/06/25 09:58 Oxygen Delivery Method Room Air 01/06/25 09:58 BMI result Body Mass Index 32.3 Assessment & Plan Assessment & Plan (1) History of hepatitis C: Code(s): Z86.19 - Personal history of other infectious and parasitic diseases Category: Medical Plan: na Plan na Coding Level of Care Code New Pt Level 3 (80665) Diagnoses History of hepatitis C Z86.19
[2025-01-06 09:58] VITALS: PULSE 64; O2SAT 98; BMI 32.3
--- OUTSIDE RECORDS SUMMARY | 2025-01-06 11:11 | XMS_ITS | Patient Health Record ---
Author Organization [facility] [place] Address [address] [facility] [address] [place] [address] Support Name Relationship Address Phone DALIA BAEZ Guarantor Unknown [phone] Reason For Referral No Information Plan Of Treatment No Information Insurance Providers Payer Name Payer Address Payer Phone Subscriber Number Group Number Insured Name Patient Relationship to Insured Coverage Start Date Coverage End Date [facility] [address] [place] [address] [id number] DALIA BAEZ Self - patient is the insured
--- OUTSIDE RECORDS SUMMARY | 2025-01-06 11:12 | XMS_ITS | Patient Health Record ---
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
== END 2025-01-06 10:18 | disposition home or self-care (01) ==
LOC: HO.HID 09:45
PROVIDERS: PCP Student in an Organized Health Care Education/Training Program; Visit Provider Internal Medicine
DX: Z86.19 Personal history of other infectious and parasitic diseases (principal)
CPT/HCPCS: 99203

== ENCOUNTER 2025-02-02 08:17 | Outpatient (REF) | payer OTHER, SELFPAY ==
--- OUTSIDE RECORDS SUMMARY | 2025-01-28 23:59 | XMS_ITS | Continuity of Care Document ---
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 Refills 0, Maintenance, 01/02/25 2:10:00 PM EDT, Route to Pharmacy Electronically, [facility], Partial fill upon patient request if the prescription is for a schedule II opioid drug., 168, cm, 12/06/24 10:18:00 EDT, Height, 84.7, kg,01/01/25 20:48:00 EDT, Dry Weight Start Date: 01/02/25 Status: Ordered Medication Dispense Status: Completed Quantity: 30.0 Unit: tablet Total Allowed Fills: 1 Fills Dispensed: 0 aspirin 81 mg oral delayed release tablet = 81 mg, By Mouth, Daily, # 90 tablet, 3 Refills, Maintenance, 11/06/24 10:42:00 AM EDT, EC Tablet, [facility], Partial fill upon patient request if the prescription is for a schedule IIopioid drug., 165, cm, 11/06/24 8:00:00 EDT, Height, 82, kg, 11/03/24 16:04:00 EDT, Dry Weight Start Date: 11/06/24 Status: Ordered Medication Dispense Status: Completed Quantity: 90.0 Unit: tablet Total Allowed Fills: 4 Fills Dispensed: 0 atorvastatin 80 mg oral tablet = 80 mg, By Mouth, Daily at bedtime, # 90 capsule, 0 Refills, Maintenance, 11/06/24 10:42:00 AM EDT,Tablet, [facility], Partial fill upon patient request if the prescription is for a schedule II opioid drug., 165, cm, 11/06/24 8:00:00 EDT, Height, 82, kg, 11/03/24 16:04:00 EDT, Dry Weight Start Date: 11/06/24 Status: Ordered Medication Dispense Status: Completed Quantity: 90.0 Unit: capsule Total Allowed Fills: 1 Fills Dispensed: 0 metFORMIN 500 mg oral tablet 1 tablet = 500 mg, By Mouth, 2 times a day, Maintenance, 01/02/25 10:47:00 AM EDT, Tablet, Partial fill upon patient request if the prescription is for a schedule II opioid drug. Start Date: 01/02/25 Status: Ordered Medication Dispense Status: Completed Total Allowed Fills: 1 Fills Dispensed: 0 omeprazole 40 mg oral enteric coated capsule 1 capsule = 40 mg, By Mouth, Daily, # 30 capsule, 0 Refills, Maintenance, 11/03/24 7:04:00 PM EDT, EC Capsule, Partial fill upon patient request if the prescription is for a schedule II opioid drug. Start Date: 11/03/24 Status: Ordered Medication Dispense Status: Completed Quantity: 30.0 Unit: capsule Total Allowed Fills: 1 Fills Dispensed: 0 Plavix 75 mg oral tablet 75 mg, 1, tablet, By Mouth, Daily, start on 11/17/2024, # 30 tablet, Refills 1, Tot. Refills 1, Maintenance, 11/16/24 2:53:00 PM EDT, Route to Pharmacy Electronically, [facility], Partial fill upon patient request if the prescription is for a schedule II opioid drug., 168, cm, 11/16/2509:22:00 EDT, Height, 77.5, kg, 11/15/24 15:55:00 EDT, Dry Weight Start Date: 11/16/24 Status: Ordered Medication Dispense Status: Completed Quantity: 30.0 Unit: tablet Total Allowed Fills: 2 Fills Dispensed: 0 Problem List Condition Confirmation Course Effective Dates Status H ealth Status Informant History of acute ST segment elevation myocardial infarction Confirmed Active HLD - Hyperlipidemia Confirmed Active HTN - Hypertension Confirmed Active Social History Social History Type Response Sex Sex Representation Male (finding) Deprecated Cardiac rehabilitation treatment plan Progress note and attainment of goals (narrative) * Latonia Martinez: PERFORM, SIGN, VERIFY Event Display: Cardiac Rehab Note Authored Date: [id number] Patient: DALIA BAEZ Age: 59 years Sex: Male : 1965 Associated Diagnoses: None Author: Latonia Martinez Patient scheduled for cardiac rehab orientation on 12/29/24 at 8am. This is patients second orientation that was rescheduled. Called and left a message to patient regarding missed appointment. Patientdoes have 70% residual in LAD and is scheduled for PCI 02/06/25.Instructed patient that if he wouldlike to reschedule, the cardiac rehab team will see him in inpatient s/p PCI to do phase 1 teachingand that we can set up his appointment for him. Electronically Signed on 12/29/24 08:41 AM Latonia Martinez Patient Care team information Care Team Personnel Name: Not on Staff, PCP Position: [facility] Physician (General Medicine) Member Role: PCP Name: Jamie Barkley RN Position: S RN Member Role: Primary Care Nurse Name: Cecy Gongora LPN Position: S RN Member Role: Primary Care Nurse Care Team Related Persons Name: NICOLLE BAEZ Name: SANDRA BAEZ Name: CAROLINE BENITEZ Insurance Providers Guarantor name: ADWO[employer] Health Plan Information #: 1 Payer: [facility] NON P HMO P Payer Identifier: NA Member Number: [id number] Group Number: [id number] Subscriber Identifier: [id number] Relationship to Subscriber: self Coverage Type: Other Private Insurance Coverage Verification Date: NA Telecom: NA Address: NA
--- NOTE | ~2025-02-02 | US_ITS ---
CLINICAL HISTORY: R74.8 - Abnormal levels of other serum enzymes US abdomen limited Comparison: None provided Findings: The visualized pancreas is normal. The aorta and inferior vena cava are normal caliber. The appearance of the liver suggests fatty infiltration. There is no intrahepatic bile duct dilatation. The common duct is 4.0 mm in diameter. The gallbladder is normal. There is no sonographic Carroll sign. The main portal vein is antegrade. The right kidney is 10.7 cm in length. No ascites. IMPRESSION: Hepatic steatosis. This document has been electronically signed by: Armani Kaur MD on 02/02/2025 11:09:15
--- OUTSIDE RECORDS SUMMARY | 2025-02-02 08:34 | XMS_ITS | Patient Health Record ---
Author Organization [facility] [place] Address [address] [facility] [address] [place] [address] Support Name Relationship Address Phone DALIA BAEZ Guarantor Unknown Reason For Referral No Information Plan Of Treatment No Information Insurance Providers Payer Name Payer Address Payer Phone Subscriber Number Group Number Insured Name Patient Relationship to Insured Coverage Start Date Coverage End Date [facility] [address] [place] [id number] DALIA BAEZ Self - patient is the insured
--- OUTSIDE RECORDS SUMMARY | 2025-02-02 08:34 | XMS_ITS | Patient Health Record ---
Author Organization [facility] Address [address] [place] [address] Care Team Providers Care Export Administrator Name Role Phone Raymon Castle Primary Care Provider Reason For Referral No Information Plan Of Treatment No Information Insurance Providers Payer Name Payer Address Payer Phone Subscriber Number Group Number Insured Name Patient Relationship to Insured Coverage Start Date Coverage End Date [place] Medicaid C3 [address] [place], [place] [id number] [place] Self - patient is the insured 2
== END 2025-02-02 08:18 | disposition home or self-care (01) ==
LOC: HO.US 08:17
PROVIDERS: PCP Student in an Organized Health Care Education/Training Program; Visit Provider Student in an Organized Health Care Education/Training Program
DX: R74.8 Abnormal levels of other serum enzymes (principal); R76.89 Other specified abnormal immunological findings in serum
CPT/HCPCS: 76705

== ENCOUNTER → 2025-02-02 08:19 | Outpatient (BNV) | payer OTHER, SELFPAY | PROVIDERS: PCP Student in an Organized Health Care Education/Training Program; Visit Provider Specialist | DX: K76.0 Fatty (change of) liver, not elsewhere classified (principal) | CPT/HCPCS: 76705 ==

== ENCOUNTER 2025-02-10 13:43 | Outpatient (AMB) | payer OTHER, SELFPAY ==
--- OUTSIDE RECORDS SUMMARY | 2025-02-07 11:43 | XMS_ITS | Continuity of Care Document ---
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 Name Role Phone Not on Staff, PCP Primary Care Physician Unavail able Encounter [facility] [place](s): 02/06/25 - 02/07/[address] [address]- Discharge Disposition: A-D/C Home Attending Physician: Win Gaona MD Admitting Physician: Win Gaona MD Referring Physician: Win Gaona MD Encounter Type: Disch Daystay Allergies, Adverse Reactions, Alerts No Known Allergies Functional Status Functional Status Assessment Assessment Assessment Component Result Effecti ve Date Unspecifed Functional Status Assessment Skin abnormality typ e (observable entity) Surgical incision 02/07/25 Functional Status Assessment Assessment Assessment Component Result Effecti ve Date Total score [AUDIT] 0 02/06/25 Medications amLODIPine 5 mg oral tablet 5 mg, By Mouth, Daily, # 30 tablet, Refills 0, Tot. Refills 0, Maintenance, 02/07/25 12:01:00 PM EST, Route to Pharmacy Electronically, [facility], Partial fill upon patient request if the prescription is for a schedule II opioid drug., 168, cm, 02/07/25 9:34:00 EST, Height, 83.9, kg,02/06/25 12:48:00 EST, Dry Weight Start Date: 02/07/25 Status: Ordered Medication Dispense Status: Completed Quantity: 30.0 Unit: tablet Total Allowed Fills: 1 Fills Dispensed: 0 AmLODipine Tablet 5 mg, Tablet, By Mouth, 02/07/25 9:00:00 AM EST Start Date: 02/07/25 Stop Date: 02/07/25 Status: Completed Medication Dispense Status: Completed Total Allowed Fills: 1 Fills Dispensed: 0 aspirin 81 mg oral delayed release tablet = 81 mg, By Mouth, Daily, # 90 tablet, 3 Refills, Maintenance, 11/06/24 10:42:00 AM EDT, EC Tablet, [facility], Partial fill upon patient request [...] 0 Refills, Maintenance, 11/06/24 10:42:00 AM EDT,Tablet, [facility], Partial fill upon patient request if [...] Total Allowed Fills: 1 Fills Dispensed: 0 pantoprazole 40 mg oral delayed release tablet 1 tablet = 40 mg, By Mouth, Daily, # 30 tablet, 0 Refills, Maintenance, 02/06/25 2:01:00 PM EST, ECTablet, 168, cm, 02/06/25 12:48:00 EST, Height, 83.9, kg, 02/06/25 12:48:00 EST, Dry Weight Start Date: 02/06/25 Status: Ordered Medication Dispense Status: Completed Quantity: 30.0 Unit: tablet Total Allowed Fills: 1 Fills Dispensed: 0 Plavix 75 mg oral tablet 75 mg, 1, tablet, By Mouth, Daily, start on 11/17/2024, # 30 tablet, Refills 1, Tot. Refills 1, Maintenance, 11/16/24 2:53:00 PM EDT, Route to Pharmacy Electronically, [facility], Partial fill upon patient request [...] Confirmed Active HTN - Hypertension Confirmed Active Vital Signs Most recent to oldest [Reference Range]: 1 2 3 Height 168 cm (02/07/25 9:34 AM) 168 cm (02/07/25 2:48 AM) 168 cm (02/06/25 8:29 PM) Weight 79.7 kg (02/07/25 5:22 AM) 83.9 kg (02/06/25 12:36 PM) 83.9 kg (02/06/25 7:26 AM) Oxygen Saturation [94-100 %] 98 % (02/07/25 9:34 AM) 96 % (02/07/25 2:48 AM) 96 % (02/06/25 8:29 PM) Pulse Rate [55-90 bpm] 60 bpm (02/07/25 9:34 AM) 59 bpm (02/07/25 2:48 AM) 63 bpm (02/06/25 8:29 PM) Body Mass Index [18.5-24.99 kg/m2] 29.73 kg/m2 *H* (02/06/25 12:36 PM) 29.73 kg/m2 *H* (02/06/25 7:26 AM) Blood Pressure [90-138/55-84 mm Hg] 119/64mm Hg (02/07/25 9:34 AM) 119/64mm Hg (02/07/25 9:30 AM) 119/64mm Hg (02/07/25 2:48 AM) Respiratory Rate [16-30 br/min] 18 br/min (02/07/25 9:34 AM) 18 br/min (02/07/25 2:48 AM) 18 br/min (02/06/25 8:29 PM) Temperature [96.8-100.4 DegF] 97.9 DegF (02/07/25 9:34 AM) 98.0 DegF (02/07/25 2:48 AM) 98.2 DegF (02/06/25 8:29 PM) Mode of Delivery (Oxygen) Room air (02/07/25 9:34 AM) Room air (02/07/25 2:48 AM) Room air (02/06/25 8:29 PM) Blood pressure sites Arm, left (02/07/25 9:34 AM) Arm, left (02/07/25 2:48 AM) Arm, left (02/06/25 8:29 PM) Temperature Route Oral (02/07/25 9:34 AM) Oral (02/07/25 2:48 AM) Oral (02/06/25 8:29 PM) Dry Weight 83.9 kg (02/06/25 12:36 PM) 83.9 kg (02/06/25 7:26 AM) Weight Obtained Via Bed scale (02/07/25 5:22 AM) Standing scale (02/06/25 7:26 AM) Dry Weight Obtained Via Standing scale (02/06/25 7:26 AM) Social History Social History Type Response Sex Sex Representation Male (finding) Procedure * Event Display: Cardiac Rhythm Strips Authored Date: * Event Display: Hemodynamic Procedure Report Authored Date: EKG study * Event Display: ECG 12-Lead Authored Date: Please click on pdf link to open report * Event Display: ECG 12-Lead Authored Date: Ventricular Rate: 53 BPM Atrial Rate: 53 BPM P-R Interval: 116 ms QRS Duration: 92 ms Q-T Interval: 456 ms QTC Calculation(Bazett): 427 ms P [place]: 19 degrees R [place]: 40 degrees T [place]: -[address] and T wave abnormality, consider lateral ischemia Abnormal ECG When compared with ECG of 06-Feb-2025 07:01, No significant change was found Confirmed by Win Gaona ([id number]) on 02/06/2025 11:55:31 AM Blandon: Win Gaona * Event Display: ECG 12-Lead Authored Date: Please click on pdf link to open report * Event Display: ECG 12-Lead Authored Date: Ventricular Rate: 55 BPM Atrial Rate: 55 BPM P-R Interval: 114 ms QRS Duration: 88 ms Q-T Interval: 442 ms QTC Calculation(Bazett): 422 ms P [place]: 24 degrees R [place]: 27 degrees T [place]: -19 degrees Sinus bradycardia Nonspecific T wave abnormality Abnormal ECG When compared with ECG of 01-Jan-2025 20:51, No significant change was found Confirmed by Win Gaona ([id number]) on 02/06/2025 7:18:37 AM Blandon: Win Gaona Hospital Progress note * Jennifer Quezada RN: PERFORM, SIGN, VERIFY Event Display: Progress Note [facility] Authored Date: Patient: DALIA BAEZ Age: 59 years Sex: Male : 1965 Associated Diagnoses: None Author: Jennifer Quezada RN Findings Problem Related to Alteration in Cardiac Function (new) : Alteration in Cardiac Function/new 02/07/2025 11:06 EST Alteration in Cardiac Status Related to Cardiac Procedure Goals & Outcomes, Cardiac Status Pt will resume/maintain adequate cardiac output, Pt will resume/maintain adequate hemodynamic status, Pt will resume/maintain adequate respiratory function, Pt will resume/maintain intact neuro function, Pt will maintain adequate GI/ function appropriate for pt, Pt will maintain adequate nutrition status, Pt/caregiver will state understanding of diagnosis, Pt/caregiver will state strategies to reduce risk factors, Pt/caregiver will state understanding of procedure, Pt will state pain at procedure site to be tolerable Cardiac Interventions Implemented Assess/monitor cardiac status, Assess/monitor neuro status, Assess/monitor respiratory status, Assess for tolerance of IV infusions; verify rate & dose, Call/Report variances in ECG to provider, Document & Monitor O2 Sats; Administer O2 as ordered, Ensure adequate caloric intake, If no bowel movement in 3 days activate bowel regime, Monitor & document daily weight, Monitor anticoagulation values, Monitor ECG w/administration of antiarrhythmics (CO 13.420), Obtain 12 Lead ECG and CXR as ordered, Prep pt for treatments & procedures, Teach/encourage deep breath & cough exercises, Teach/encourage use of incentive spirometer, Team conversation regarding appropriate level of care, Turn & reposition Q2 hours per activity restrictions, Useadjunctive therapies per Standards of Practice Goals/Interventions, Cardiac Yes Cardiac, Problem Start 02/06/2025 12:52 Reviewed Plan with, Cardiac Status Patient Patient Progression, Cardiac Status Plan Initiation . Nursing Data Cardiac Data. : Cardiac Data. 02/07/2025 11:05 EST Nail Bed Color, Fingers [place] Nail Bed Color, Toes [place] Skin Temperature Upper Extremities Warm Skin Temperature Lower Extremities Warm Heart Rhythm Regular Cardiac Rhythm Normal sinus rhythm Capillary Refill < 3 seconds monitoring manager Yes Cardiovascular WNL except . Evaluation (Pt awake and alert ox3. Pt denies sob. Pt states he has been having intermittent r sidec/p. Dr Rockwell made aware. R radial site stable. Lungs clr. VSS will continue to monitor and report any changes to MD.) Electronically Signed on 02/07/25 11:11 AM Pilar GARCIA, Jennifer Wellington * Sofiya Hong RN: PERFORM, SIGN, VERIFY Event Display: Progress Note Hospital Authored Date: [id number] Patient: DALIA BAEZ Age: 59 years Sex: Male : 1965 Associated Diagnoses: None Author: Hal GARCIA, Sofiya Findings Nursing Data Vital Signs : VITAL SIGNS SECTION 02/07/2025 2:48 EST Temperature 98.0 DegF Temperature Route Oral Pulse Rate 59 bpm Respiratory Rate 18 br/min Systolic Blood Pressure 119 mm Hg Diastolic Blood Pressure 64 mm Hg Blood pressure sites Arm, left Mean Arterial Pressure 82 mm Hg Pulse Pressure 55 mm Hg Oxygen Saturation 96 % Mode of Delivery (Oxygen) Room air 02/06/2025 20:30 EST Early Warning Score 0.00 02/06/2025 20:29 EST Temperature 98.2 DegF Temperature Route Oral Pulse Rate 63 bpm Respiratory Rate 18 br/min Systolic Blood Pressure 119 mm Hg Diastolic Blood Pressure 69 mm Hg Blood pressure sites Arm, left Mean Arterial Pressure 86 mm Hg Pulse Pressure 50 mm Hg Oxygen Saturation 96 % Mode of Delivery (Oxygen) Room air . Narrative/Incidental Alert oriented x4 telemetry show SR, heart rate down to 37 for about 10. Sleeping at that time DR Diaz notified. Right radial dsg clean dry and intact, no bleeding no hematoma with palpable radial pulse. No edema lower extremities. OOB to bathroom independently. Continue to monitor and report changes. . Electronically Signed on 02/07/25 03:05 AM Sofiya Hong RN * Sofiya Hong RN: PERFORM, SIGN, VERIFY Event Display: Progress Note Hospital Authored Date: [id number] Patient: DALIA BAEZ Age: 59 years Sex: Male : 1965 Associated Diagnoses: None Author: Sofiya Hong RN Findings Nursing Data Vital Signs : VITAL SIGNS SECTION 02/06/2025 20:29 EST Temperature 98.2 DegF Temperature Route Oral Pulse Rate 63 bpm Respiratory Rate 18 br/min Systolic Blood Pressure 119 mm Hg Diastolic Blood Pressure 69 mm Hg Blood pressure sites Arm, left Mean Arterial Pressure 86 mm Hg Pulse Pressure 50 mm Hg Oxygen Saturation 96 % Mode of Delivery (Oxygen) Room air . Evaluation Alert oriented x4 telemetry shows A Fib 70-80's Denies any pain, shortness of breath, dizziness. Lungs clear, some edema to left lower extremity. Bed alarm on for safety. Continue to monitor and report changes. . Electronically Signed on 02/07/25 01:16 AM Sofiya Hong RN Note * Jennifer Quezada RN: PERFORM Event Display: Discharge/Transfer Note Hospital Authored Date: [id number] Nursing Discharge Note Entered On: 02/07/2025 11:45 EST Performed On: 02/07/2025 11:43 EST by Jennifer Quezada RN Nursing Discharge Note 2 Discharge Time : 02/07/2025 11:43 EST Discharge Level of Care at Discharge : Home/Alf/Foster Care Patient Left Unit Via : Ambulatory Patient Accompanied Off Unit with : Responsible adult DC Instructions Provided & Signed by Pt : Yes Patient Understands D/C Instructions : Yes Patient Instructions Discharge Signed : Yes Discharge Comments : IV and monitor removed. IV site and R radial site stable. Pt awake and alert ox3. Pt d/c home with instructions exaplined to pt. Scripts available at our pharmacy. Did Pt have Specialty Bed or Wound Vac : No Pilar GARCIA, Jennifer Wellington - 02/07/2025 11:43 EST Electronically Signed on 02/07/25 11:43 AM Pilar GARCIA, Jennifer Wellington * Luli REEDER, Rikki: PERFORM Event Display: Discharge/Transfer Note Hospital Authored Date: [id number] Patient: ??DALIA BAEZ ? Age:??59 Years?Sex:??Male?:??1965?LOC:??[facility]?? Patient Hx Cardiology Shared Clinical Summary CAD with inferior STEMI (10/2024) s/p PCI of RCA and now PCI of LAD (02/06/25) Admit Date Admission Date: 02/06/2025 Discharge Date 02/07/2025 Discharge Diagnoses Stable Angina Hospital Course Mr Quach is a 59 yr old male with past medical hx significant for CAD with inferior STEMI s/p PCI of RCA (11/03/24), hypertension, hyperlipidemia and tobacco abuse in remission who presented for cardiac catheterization due to worsening angina and underwent successful PCI of LAD (SELUTIONS Trial). He had an uneventful hospital course and is now stable for discharge. Objective/Physical Exam on Day of Discharge Vitals & Measurements T:??98.0?F?? HR:??59??(Peripheral)?? RR:??18?? BP:??119/64?? SpO2:??96%?? HT:??168??cm?? WT:??79.7??kg?? BMI:??29.73?? Weight lb/oz: 175 lb 11 oz General Appearance: The patient is in NAD. Cardiovascular: RRR S1 and S2 heard with no M/R/G. No JVD. Respiratory: ??Breath sounds clear to auscultation bilaterally. No wheezing. Good air movement throughout both lungs. GI: Soft. Non-tender and non-distended. Normal bowel sounds present throughout abdomen. ??No rebound tenderness or other findings suggestive of an acute abdomen.?? MS: ??No edema or erythema in the lower extremities. No wounds seen on the feet. No spinal or paraspinal tenderness. ??No CVA tenderness. Neuro: ??No slurred speech. Upper and lower extremity strength equal bilaterally. Psych: Alert and oriented x3. Appropriate and pleasant. CAM negative. Lines: Peripheral IV in place.? Assessment/Plan # CAD s/p PCI of LAD # HX of inferior STEMI s/p PCI of RCA # Hypertension # Hyperlipidemia # Tobacco abuse in remission ?? - Continue aspirin 81 mg daily - Continue clopidogrel 75 mg daily - Atorvastatin 80 mg daily - Beta blockers NOT TOLERATED due to resting bradycardia Patient Discharge Condition Good Discharge Disposition Home Home Health Face to Face ^HomeHealthFTF Allergies NKA Home Medications Amlodipine: 5 mg, By Mouth, Daily Aspirin: 81 mg, By Mouth, Daily Atorvastatin: 80 mg, By Mouth, Daily at bedtime Clopidogrel: 75 mg = 1 tablet, By Mouth, Daily, start on 11/17/2024 Metformin: 500 mg = 1 tablet, By Mouth, 2 times a day Pantoprazole: 40 mg = 1 tablet, By Mouth, Daily Hospital Medications Medications (9) Active SCHEDULED: (6) Amlodipine 5 mg Tablet (AmLODipine Tablet) ??5 mg, By Mouth, Daily Aspirin 81 mg EC Tablet (Aspirin EC) ??81 mg, By Mouth, Daily Atorvastatin 80 mg Tablet (Atorvastatin Tablet) ??80 mg, By Mouth, Daily at bedtime Clopidogrel 75 mg Tablet (Clopidogrel Tablet) ??75 mg, By Mouth, Daily Metformin 500 mg Tablet (Metformin Tablet) ??500 mg 1 each, By Mouth, 2 times a day NaCl 0.9% Flush 3ml (NaCL 0.9% Flush) ??3 mL, IV Push, Every 8 hours CONTINUOUS: (2) NaCL 0.9% (1000 mL) Cont IV 254.1 mL (NaCL 0.9% Bolus 254.1 mL) ??254.1 mL, IV Infusion Sodium Chloride 0.9% 500 mL [1.5 mL/kg/hr] (Sodium Chloride 0.9% Normalized 500 mL [1.5 mL/kg/hr]) ??500 mL, IV Infusion, 125.85 mL/hr PRN: (1) NaCl 0.9% Flush 3ml (NaCL 0.9% Flush) ??3 mL, IV Push, Every 8 hours Lab Results Cardiology Labs Blood Count & Diff COAG?? General Chemistry?? Cardiac?? Lipid Studies?? WBC: 7 k/mm3 (02/06/25) APTT: 25.8 seconds (11/04/24) Sodium: 137 mmol/L (02/06/25) Bilirubin, Total: 0.6 mg/dL (11/06/24) Cholesterol: 192 mg/dL (11/03/24) RBC: 5.33 m/mm3 (02/06/25) ?? Potassium: 4.4 mmol/L (02/06/25) ?? Triglycerides: 36 mg/dL (11/03/24) Hgb: 14.3 Gm/dL (02/06/25) ?? Chloride: 105 mmol/L (02/06/25) ?? HDL Cholesterol: 47 mg/dL (11/03/24) Hct: 42.9 % (02/06/25) ?? Bicarbonate Level: 24 mmol/L (02/06/25) ?? Non HDL Cholesterol: 145 mg/dL (11/03/24) MCV: 80.5 femtoliters (02/06/25) ?? Anion Gap: 8 mmol/L (02/06/25) ? Platelet Count: 163 k/mm3 (02/06/25) ?? Glucose Level:??105 mg/dL??High (02/06/25) ? Hemoglobin A1C (Monitoring):??6.3 %??High (11/03/24) ? BUN: 17 mg/dL (02/06/25) ? Creatinine-Blood: 0.85 mg/dL (02/06/25) ? Estimated GFR Creatinine: 101 ML/MIN/1.73 M2 (02/06/25) ? Calcium: 8.8 mg/dL (02/06/25) ? Magnesium: 2 mg/dL (11/06/24) ? Protein, Total: 6.5 Gm/dL (11/06/24) ? Albumin: 3.6 Gm/dL (11/06/24) ? Alkaline Phosphatase: 54 units/L (11/06/24) ? AST (SGOT):??50 units/L??High (11/06/24) ? ALT (SGPT): 33 units/L (11/06/24) ? Diagnostic Impression ECG ECG 12-Lead ?? 11:09:57 Please click on pdf link to open report ?? Signed By: Win Gaona MD ?? ECG 12-Lead ?? 11:09:57 Ventricular Rate: 53 BPM Atrial Rate: 53 BPM P-R Interval: 116 ms QRS Duration: 92 ms Q-T Interval: 456 ms QTC Calculation(Bazett): 427 ms P [place]: 19 degrees R [place]: 40 degrees T [place]: -[address] and T wave abnormality, consider lateral ischemia Abnormal ECG When compared with ECG of 06-Feb-2025 07:01, No significant change was found Confirmed ?? Signed By: Win Gaona MD Echo Echocardiogram - Complete ?? 11:10:57 Summary Normal LV systolic function (EF 60-65%). No significant regional wall motion abnormalities. Normal LV diastolic function. Normal LV cavity size. Normal LV wall thickness. ?? Normal RV systolic function. Normal RV size. ?? No clinically significant valvular abnormalities. ?? Comparison No prior study available for comparison. ?? Signature ?? Signed By: Asya Leon MD Cardiac Cath Procedure Cardiac Cath Procedure ?? 09:21:00 Conclusions ?? Interventional Summary LM: luminal irregularities LAD: 80% stenosis involving D1 bifurcation (Manzanares 1,0,1) LCx: luminal irregularities RCA: not selectively engaged, Tx/w PCI on 11/03/24 LVEDP: 14 mmHg _Tx/w PCI w/ drug-coated balloons to LAD ?? Complications: None Specimens: None EBL: 10 mL ?? Interventional Recommendations_pt is participating in the SELUTION trial???s pharmacokinetic substudy: this substudy is not blinded _ASA 81 mg daily lifelong_clopidogrel 75 mg daily for 1 year post-PCI (through 02/06/26)_maximal medical therapy for CAD per guidelines_radial compression band for 2 hours_hydration: normal saline for 4 hours per POSEIDON protocol ?? Win Gaona MD, MS, FACC, [facility], FSVM, RPVI Director, Cardiovascular Clinical Research [facility] ?? [email or web address]: [address] [place] [address] ?? SELUTION Study: [id number]; Group #[id number] ?? Signatures ?? Signed By: Candelaria REEDER, Win Cooley Problem List/Past Medical History Ongoing History of acute ST segment elevation myocardial infarction HLD - Hyperlipidemia HTN - Hypertension Procedure/Surgical History No qualifying data available. Family History No family history recorded. Electronically Signed on 02/07/25 08:36 AM Luli REEDER, Rikki * Candelaria REEDER, Win Cooley: PERFORM Event Display: Discharge/Transfer Note Hospital Authored Date: I have seen and examined??DALIA BAEZ??today with the house staff.?? I agree with the diagnosis, assessment, and treatment plan outlined with any additions and modifications below. ?? 59M w/ CAD c/b inferior STEMI s/p PCI JUDITH RCA 11/03/24, PCI with drug-coated balloon to LAD 02/06/25, HTN, HL, prior tobacco.?? Pt is participating in the unblinded pharmacokinetic substudy of the SELUTION trial of coronary drug-coated balloons.? - aspirin 81 mg daily lifelong - clopidogrel 75 mg daily for 1 year after STEMI PCI (through 11/03/25) - atorvastatin 80 - amlodipine 5 - no beta lang indicated given normal LV systolic function after IN ?? - discharge planning, including SELUTION phlebotomy and follow-up scheduling, required 60 minutes ?? Win Gaoan MD, MS, FACC, FSCAI, FSVM, RPVI Director, Cardiovascular Clinical Research [facility] Cell:?? [email or web address] Clinic:?? Fax:?? [address] [place] [id number] Electronically Signed on 02/07/25 08:04 PM Candelaria REEDER, Win Quezada RN, Jennifer Wellington: PERFORM Event Display: Patient Education/Instruction Authored Date: [id number] Inpatient Adult Discharge Instructions. [address] [address] Name: DALIA BAEZ : 1965?? Visit: 02/06/2025 06:15?? Current Date: 02/07/2025 11:24 ?? Account: [id number]?? Inpatient Adult Discharge Instructions We would like to thank you for allowing us to assist you with your healthcare needs. The following includes patient education materials and information regarding your injury/illness. Our entire staffstrives to provide an excellent experience for our patients and their families. PLEASE ENSURE YOU FOLLOW-UP PER THE INSTRUCTIONS BELOW! ?? YOUR OPINION IS IMPORTANT TO US! Please complete the survey you may receive by mail or email. Your feedback will be used to make improvements to the healthcare experiences of our patients and their families. Surveys are administered by [employer] (acquired by [employer] in 2014[employer] ?? If further treatment with your primary care physician or another doctor is recommended, it is important for you to keep the appointment. Call your primary care physician or return to the Emergency Department immediately if your condition worsens, fails to improve, or new symptoms develop. If you need to find a doctor, you can call [facility] [email or web address] for a referral at [phone] or toll free at [phone]) or log in to [email or web address].. ?? [facility] [employer], in keeping with [facility] guidance, no longer requires face masks for staff, patientsor visitors in most situations. Similiar to time spent indoors at other locations, there is the chance that you were exposed to repiratory viruses during your time with us (such as flu or COVID-19). If you develop symptoms concerning for a viral respiratory infection, please seek testing (and treatment if indicated) from your medical provider or home test kit. ?? You can view and manage your care through the patient portal or by using a health care leigha of your choosing. [employer] is a website that allows you to securely view your medical information including your hospital discharge summary, office visit summaries, medications and follow-up visits. You can also request appointments, renew medications, and request access to your medical information using a health care leigha of your choosing, or just ask a question. You are entitled to know the individuals who participated in your treatment. This information is available within your medical record and will be provided upon your request. You can enroll at [email or web address] or register d uring your next office visit. You have been discharged from [facility], Patient Care Unit: M5??. If you have any questions regarding these instructions, including results of studies pending, afteryou leave, please call us and we will be happy to assist you 13/10. [facility] Your Care Team Attending Physician Win Gaona MD?? Consulting Providers Win Gaona MD?? Discharging Providers Rikki Rockwell MD Tests Performed Below is a partial list of the tests performed during your hospitalization. You may have had other tests and procedures not included in this list. Please discuss all test results with your provider. Basic Metabolic Panel CBC GLUCOSE POC High Sensitivity Troponin T POC Hemochron ACT-LR Troponin T, High Sensitivity Basic Metabolic Panel?? CBC?? Glucose POC?? High??Sensitivity??Troponin T (High Sensitivity Troponin T)?? POC ACT-LR (POC Hemochron ACT-LR)?? Primary Care Provider Not on Staff, PCP?? Advance Directive Health Care Proxy on File Yes - Health Care Proxy Discharge Vitals Temperature: 97.9 DegF Height: 168 cm Pulse Rate: 60 bpm Weight: 79.7 kg Respiratory Rate: 18 br/min Body Mass Index:??29.73 kg/m2??High Systolic Blood Pressure: 119 mm Hg Body surface area: 1.98 Diastolic Blood Pressure: 64 mm Hg ?? Oxygen Saturation: 98 % ?? Studies Pending All studies ordered during this hospital stay have been completed unless listed below. Please discuss all pending results with your provider listed above in these instructions. ?? No incomplete studies found?? What to do next Instructions From Your Doctor ?? Orders? 02/07/25 10:40:00 EST?? Discharge Medications DALIA BAEZ :1965 Visit Date:02/06/2025 Medications: Please continue your medications until treatment is completed or stopped by your provider. Medications not listed below should be discontinued. Discuss any questions related to medications with your provider. What How Much When Instructions Next Dose New Pantoprazole (pantoprazole 40 mg oral delayed releasetablet) 1 tab(s) Oral Daily Ordering Physician: Rikki Rockwell MD at [facility] Tomorrow Unchanged Amlodipine (amLODIPine 5 mg oral tablet) 5 Milligram Oral Daily Ordering Physician: Kathie Arredondo Tomorrow Unchanged Aspirin (aspirin 81 mg oral delayed release tablet) 81 Milligram Oral Daily Ordering Physician: Tang Hernandez MD Tomorrow Unchanged Atorvastatin (atorvastatin 80 mg oral tablet) 80 Milligram Oral Daily at Bedtime Ordering Physician: Tang Hernandez MD Bedtime Unchanged Clopidogrel (Plavix 75 mg oral tablet) 1 tab(s) Oral Daily Special Instructions: start on 2024 Ordering Physician: Dario Starr MD ?? Tomorrow Unchanged Metformin (metFORMIN 500 mg oral tablet) 1 tab(s) Oral Twice a day [facility] Information [facility]: [address], [place] [id number] [phone] ?? What How Much When Comments Stop Taking Omeprazole (omeprazole 40 mg oral enteric coated capsule) 1 capsule Oral Daily Prescription Given During Visit Pantoprazole (pantoprazole 40 mg oral delayed release tablet) - 1 tablet = 40 mg, By Mouth, Daily, # 30 tablet, 0 Refills, [facility], [address] [place] [phone]?? Laboratory Results Below is a partial list of the most recent Laboratory test results done prior to this discharge. You may have had other tests and procedures not included in this list. Please discuss all test resultswith your provider. Est Creatinine Clearance - 85.92 mL/min (02/06/2025) Basic Metabolic Panel (02/06/2025) ???Sodium - 137 mmol/L???Potassium - 4.4 mmol/L???Chloride - 105 mmol/L???Bicarbonate Level - 24 mmol/L???Anion Gap - 8 mmol/L???Glucose Level - 105 mg/dL???BUN - 17 mg/dL???Creatinine-Blood - 0.85 mg/dL???Estimated GFR Creatinine - 101 ML/MIN/1.73 M2???Calcium - 8.8 mg/dL CBC (02/06/2025) ???WBC - 7.0 k/mm3???RBC - 5.33 m/mm3???Hgb - 14.3 Gm/dL???Hct - 42.9 %???MCV - 80.5 femtoliters???MCH - 26.8 pg???MCHC - 33.3 Gm/dL???Platelet Count - 163 k/mm3???RDW-SD - 38.3 femtoliters???MPV - 11.0 femtoliters???Nucleated RBC (Automated) - 0.0 #/100 WBC'S???Abs. NRBC - 0.0 k/mm3 GLUCOSE POC (02/06/2025) ???Glucose, POC - 186 mg/dL High Sensitivity Troponin T (02/06/2025) ???High Sensitivity Troponin (HSTnT) - 49 ng/L POC Hemochron ACT-LR (02/06/2025) ???POC ACT-LR - 252.0 seconds Troponin T, High Sensitivity (02/06/2025) ???High Sensitivity Troponin (HSTnT) - 48 ng/L Allergies (NKA means No Known Allergies) NKA Problems Active Problems??(3) History of acute ST segment elevation myocardial infarction?? HLD - Hyperlipidemia?? HTN - Hypertension?? Education Materials Below is the list of Educational Leaflet Providered with your Discharge Instructions. [employer] Patient Education - Surgery Radial Cath Approach Discharge Instructions?? Valuables and Belongings I fully understand and agree that [facility] accepts no responsibility for all my personal property including clothing, toilet articles, radios, jewelry, dentures, hearing aids, rings, money, or any other property that is in my possession or is brought to me after admission. I understand certain valuables may be placed in a hospital safe for a short period of time. I understand that the hospital is not liable for loss or damage due to accident, fire, or other natural occurrence while said property is in the safe. I accept full responsibility for any personal property that I keep with me, and will not hold the hospital responsible in case of loss or disappearance. I acknowledge that i have been encouraged to send valuables and belongings home. ?? Review of Valuable and Belonging List: With patient, With family, With witness Date for Pt to Sign Valuables/Belongings: 02/06/25 12:37:00 ?? Other Discharge Information ? Pulmonary Rehab Status?? Pulmonary Rehab Discharge Status?? Respiratory Rate: 18 br/min ? Common Emergency Awareness Tips IS IT A STROKE? Act FAST and Check for these signs: FACE Does the face look uneven? ARM Does one arm drift down? SPEECH Does their speech sound strange? TIME Call at any sign of stroke ?? Heart Attack Signs Chest discomfort: Most heart attacks involve discomfort in the center of the chest and lasts more than a few minutes, or goes away and comes back. It can feel like uncomfortable pressure, squeezing, fullness or pain. Discomfort in upper body: Symptoms can include pain or discomfort in one or both arms, back, neck, jaw or stomach. Shortness of breath: With or without discomfort. Other signs: Breaking out in a cold sweat, nausea, or lightheaded. Remember, MINUTES DO MATTER. If you experience any of these heart attack warning signs, call to get immediate medical attention! ?? Smoking can increase your chances of developing chronic health problems and can cause harmful effects to other family members in your house. If you smoke, you are strongly encouraged to quit. Please call [facility] [employer] at [phone] or [phone] ([phone]) or log in to [email or web address] for referrals to smoking cessation programs. ?? 988 Suicide & Crisis Lifeline is available 13/10 if you or someone you know needs to find a reason to keep living. By calling 988 you'll be connected to a skilled, trained counselor at a crisis center in your area. INPATIENT DISCHARGE INSTRUCTIONS SIGNATURE PAGE DALIA BAEZ Location:[facility] Registration Date and Time:02/06/2025 06:15 EST Primary Care Physician: Not on Staff, PCP Attending Physician: Candelaria REEDER, Win Cooley, I DALIA BAEZ, have received the above patient education materials/instructions and have verbalized understanding. If ambulance or transport services are being used I further acknowledge being given a choice of service. ?? If you need to contact me, please call me at this number: . Patient/Provider Network Analyst Name: Patient/Provider Network Analyst Signature: Relationship to Patient: Witness Name/Signature: Date: * Jennifer Quezada RN: PERFORM Event Display: Patient Education Leaflets Authored Date: [id number] Surgery Radial Cath Approach Discharge Instructions ?? 278 Radial Cath Approach Discharge Instructions ?? Activity Take it easy the rest of the day. Limit your activity on the affected side.?? Act as if your arm is broken for 24 hours. No lifting with affected arm for 24 hours. No pushing or pulling with the affected arm. Do not reach or lift with the affected arm. Do not place excessive pressure on the wrist. ?? Precautions Due to intravenous sedation: It is recommended that someone stay with you for the first night after your procedure. Do not drive or operate hazardous machinery for 24 hours. Do not make legal decisions for 24 hours. Avoid alcohol for 24 hours. Unless directed otherwise, keep yourself hydrated. ?? Dressing/Incision Care You may remove the dressing 24 hours after your procedure. Replace with band aid for an additional 24 hours. You may shower and cleanse the site with soap & water then pat dry. Avoid submersion of site in water x 5 days. Cover the with a clean band aid daily until site is healed. If the band aid becomes soiled, replacewith a clean new one. Do not apply any ointments, lotions, gels or powders to the puncture site. ?? When to contact your doctor If any of the following signs of infection occur: Fever greater than 100 degrees F Increased pain Drainage, redness or warmth at puncture site Tingling of the fingers and hand that last longer than 3 days Slight bubble of blood or bleeding from site: apply manual pressure and notify your doctor ?? Emergency situations: Bleeding from the site that will not stop: apply manual pressure and notify your doctor Profuse bleeding streaming from the puncture site: Apply manual pressure and notify your doctor immediately If your hand becomes bluish, cold to the touch, or painful, notify your doctor immediately or go toEmergency Department. For these emergent situations: If unable to contact your physician, call 911. ?? Patient Care team information Care Team Personnel Name: Not on Staff, PCP Position: [facility] Physician (General Medicine) Member Role: PCP Name: Jamie Barkley RN Position: S RN Member Role: Primary Care Nurse Name: Cecy Gongora LPN Position: [facility] RN Member Role: Primary Care Nurse Care Team Related Persons Name: NICOLLE BAEZ Name: SANDRA BAEZ Name: CAROLINE BENITEZ Insurance Providers Guarantor name: Health Plan Information #: [address]: [facility] NON BHP HMO P Payer Identifier: Member Number: [id number] Group Number: [id number] Subscriber Identifier: [id number] Relationship to Subscriber: self Coverage Type: Other Private Insurance Coverage Verification Date: NA Telecom: NA Address: Health Plan Information #: 2 Payer: [facility] Payer Identifier: Member Number: [id number] Group Number: [id number] Subscriber Identifier: [id number] Relationship to Subscriber: self Coverage Type: NA Coverage Verification Date: NA Telecom: NA Address:
--- NOTE | 2025-02-10 13:53 | A.OFFPC_ITS ---
Vital Signs 02/10/25 13:57 Height 5 ft 4 in Weight 184 lb 4 oz BMI 31.6 BP 121/58 L Blood Pressure Location Rt brachial Position Sitting Respiration 17 Pulse 63 Pulse Source Monitor Temp 97.6 F Temp Source Oral Pulse Oximetry (%) 97 Oxygen Delivery Method Room Air Intake Visit Reasons: follow up imaging/procedure Intake Note: imaging/procedure Ceo And President Required: No Accompanied by: Self / Same As Patient Allergies No Known Allergies Allergy (Verified 02/10/25 13:56) Tobacco use date assessed: 11/30/24 Dental Screening Dental Screen Date: 11/30/24 HPI HPI Comments History of Present Illness Details History of Present Illness The patient is a 59 year old individual presenting for a follow-up visit after a recent procedure and to review diagnostic results. History of Hepatitis C: The patient has a history of Hepatitis C, which was found on a routine exam. The patient follows up with an infectious disease specialist and is monitored every six months. The infection is currently not active, with a non-detectable viral load, although the patient expresses frustration that antibody tests will always remain positive. Hepatic Steatosis: An ultrasound performed on 02/02 revealed hepatic steatosis, or fatty liver. This condition is attributed to metabolic factors such as cholesterol and is not related to the patient's history of Hepatitis C. The patient expressed concern about the potential for the condition to progress to fibrosis or cirrhosis, but it is not currently at that stage. Metabolic Syndrome: The fatty liver is considered part of a metabolic syndrome picture, which is also characterized by a low good cholesterol level and a history of an elevated hemoglobin A1c. The patient reports having made lifestyle changes, including no longer eating pork. Surgical History: - Unspecified procedure on a recent Mond ay, which has improved breathing Social History: - Diet: The patient reports having made lifestyle changes, including no longer eating pork. - Home Care: A visiting nurse comes to t he patient's home to provide care, including blood draws. Diagnostic Results: - Abdominal Ultrasound (02/02): Revealed hepatic steatosis (fatty liver). - Hepatitis C Viral Load: Not active. - Hemoglobin A1c: Previously checked and due for a recheck in three months. - Cholesterol Panel: Low good cholestero l noted. Past Medical History - History of Hepatitis C, non-active wit h undetectable viral load. - Hepatic steatosis diagnosed via ultras ound. - Metabolic syndrome. Health Maintenance - The patient follows up with an infecti ous disease specialist every six months for monitoring. - Plan to monitor hepatic steatosis with imaging every 6 to 12 months. - Labs to be rechecked, including a hemo globin A1c in three months. - Discussed lifestyle changes, such as d ietary modifications including reducing carbohydrates and sweets, to manage metabolic health. [facility] Medical History (Updated 02/10/25 @ 14:19 by Wagner Lopez MD) Metabolic syndrome Fatty liver Tinea pedis History of hepatitis C Surgical History (Updated 02/10/25 @ 14:19 by Wagner Lopez MD) Hx of cardiac cath Family History Father Cerebral hemorrhage Mother Heart disease Social History (Updated 02/10/25 @ 13:56 by Tung Spaulding CMA) Housing: Apartment Alcohol intake: current Alcohol intake frequency: does not drink Patient Tobacco Use Status: Never used Tobacco Use of substances other than those prescribed or required for medical reasons: No service: No Current occupational status: employed Cognitive needs: No Hearing needs: No Vision needs: Yes (contact) Questionnaire Thrive Questionnaire Date Thrive assessed: 12/09/24 I am a: Patient What is your living situation today?: I have a steady place to live Within the past 12 months, did the food you bought not last and you didn't have the money to get more?: Often true Within the past 12 months, did you worry whether your food would run out before you got money to buy more?: Often true Do you have trouble paying for medicines?: I choose not to answer this question Do you have trouble getting transportation to medical appointments?: No Do you have trouble paying your heating and electricity bill?: No Do you have trouble taking care of your child, family member or friend?: No Do you have trouble with day-to-day activities such as bathing, preparing meals, shopping, managing finances, etc.?: I choose not to answer this question Are you currently unemployed and looking for a job?: No Are you interested in more education?: Yes Please select the resources that you would like help with: None Currently or been in a relationship where the following occur: No concerns reported THRIVE Score: 2 DEEPIKA-7 AMB Questionnaire DEEPIKA-7 Date DEEPIKA - 7 assessed: 11/30/24 Source: Developed by Drs. Rafal Stacy, Pilar Ch, Cesar Chaudhry and colleagues, with an educational elsa from [employer]. Review of Systems Narrative Review of Systems - Respiratory: Reports improved breathing following a recent procedure. 10-point ROS reviewed and negative except as noted in HPI Physical exam (Primary Care) Vital Signs: Last Vital Signs Temp 97.6 F 02/10/25 13:57 Pulse 63 02/10/25 13:57 Resp 17 02/10/25 13:57 BP 121/58 L 02/10/25 13:57 Pulse Ox 97 02/10/25 13:57 Oxygen Delivery Method Room Air 02/10/25 13:57 BMI result Body Mass Index 31.6 Tobacco/Smoking Status: Tobacco use Status Tobacco use date assessed 11/30/24 02/10/25 13:54 Patient Tobacco Use Status Never used Tobacco 02/10/25 13:56 Thrive Assessment: Date of Thrive Assessment Date Thrive assessed 12/09/24 02/10/25 13:54 Currently or been in a relationship where the following occur: No concerns reported Narrative Physical Exam General: Well-appearing, in no acute distress. Vital signs: Within normal limits. HEENT: Normocephalic, atraumatic. PERRLA, EOMI. Conjunctiva clear, sclera anicteric. Oropharynx clear, mucous membranes moist. TMs intact bilaterally. Neck: Supple, no lymphadenopathy, no thyromegaly, no JVD or carotid bruits. Cardiovascular: RRR, normal S1/S2, no murmurs, rubs, or gallops. Peripheral pulses 2+ and symmetric. No edema. Respiratory: Lungs clear to auscultation bilaterally, no wheezes, rales, or rhonchi. Normal effort. Abdomen: Soft, non-tender, non-distended. Normoactive bowel sounds. No hepatosplenomegaly, no masses. Hepatic steatosis noted on imaging. MSK: Full range of motion, no joint swelling or deformity. Normal gait. Skin: Warm, dry, intact. No rashes, lesions, or pallor. Neuro: Alert and oriented x3. Cranial nerves II-XII intact. Strength 5/5 throughout. Sensation intact. Reflexes 2+ symmetric. Normal coordination and gait. Psych: Appropriate mood and affect. Normal judgment and insight. Coding Level of Care Code Est Pt Level 3 (02339) Diagnoses History of hepatitis C Z86.19 Fatty liver K76.0 Metabolic syndrome E88.810 Tinea pedis B35.3 Hx of cardiac cath Z98.890 Assessment & Plan Assessment & Plan (1) History of hepatitis C: Code(s): Z86.19 - Personal history of other infectious and parasitic diseases Category: Medical (2) Fatty liver: Code(s): K76.0 - Fatty (change of) liver, not elsewhere classified Category: Medical (3) Metabolic syndrome: Code(s): E88.810 - Metabolic syndrome Category: Medical (4) Tinea pedis: Code(s): B35.3 - Tinea pedis Category: Medical (5) Hx of cardiac cath: Code(s): Z98.890 - Other specified postprocedural states Category: Surgical Plan Consent Patient was informed and verbally consented to the use of an ambient scribe for clinic note documentation during this visit. Plan 1. History Of Hepatitis C, Inactive - The patient was reassured that although antibody markers will persist, the undetectable viral load indicates the infection is not active. - Continue to monitor with the infectious disease specialist every six months. 2. Hepatic Steatosis - The recent ultrasound provides a baseline for monitoring. - Plan to repeat imaging in 6 to 12 months to ensure the condition does not progress. - Management will focus on lifestyle changes to improve overall metabolic health. 3. Metabolic Syndrome - Continue lifestyle changes, focusing on diet, including moderation of carbohydrates and sweets. - Recheck hemoglobin A1c in three months to monitor progress. Discussion Notes I reviewed the recent ultrasound results with the patient, which showed hepatic steatosis, and I explained this means fatty liver. I clarified that this condition is related to metabolic factors like cholesterol storage and is not associated with the patient's history of Hepatitis C. We discussed that although the Hepatitis C antibody test will always be positive, the bowie indicator is the non-active viral load, meaning there is no ongoing infection. I recommended monitoring the liver with imaging every 6 to 12 months to ensure no progression to fibrosis. We also will recheck the hemoglobin A1c in three months. I emphasized that lifestyle changes, particularly diet modifications, are the primary way to manage fatty liver and improve overall metabolic health, and that this is a long-term process. Patient Instructions - Continue to see your infectious disease doctor every six months for monitoring. - We will schedule an ultrasound of your liver in 6 to 12 months to monitor the fatty liver. - We will recheck your hemoglobin A1c blood test in three months. - Focus on lifestyle changes, especially your diet, by reducing carbohydrates and sweets. - A visiting nurse will continue to come to your home to check on you and draw blood as needed. Medical Decision Making The patient is a 59-year-old individual presenting for follow-up and review of results. The patient's history is significant for inactive Hepatitis C, confirmed by an undetectable viral load, which requires ongoing surveillance with an infectious disease specialist every 6 months. A recent ultrasound revealed hepatic steatosis. This finding, along with low good cholesterol and a history of an elevated A1c, is consistent with a diagnosis of metabolic syndrome. The primary goal is to prevent the progression of fatty liver disease to fibrosis or cirrhosis, which the patient is not near at this time. The management plan involves serial monitoring with liver imaging every 6-12 months and a repeat hemoglobin A1c in 3 months to track metabolic control. The cornerstone of management is lifestyle modification, particularly dietary changes, which was discussed with the patient as a long-term strategy. Total Time Statement 20 min Total time spent caring for the patient today includes pre-visit chart review, documentation, review of laboratory and diagnostic imaging results, medication reconciliation, medically necessary evaluation, counseling on diagnoses, care coordination, ordering appropriate tests and medications, review of tests performed by other providers, reporting test results to the patient, and communication with other healthcare providers. Medications: New terbinafine HCl 1% 1 appl topical BID 30 grams 0RF B35.3 - Tinea pedis
[2025-02-10 13:57] VITALS: BP 121/58; PULSE 63; RESP 17; TEMP 36.4; O2SAT 97; BMI 31.6
--- OUTSIDE RECORDS SUMMARY | 2025-02-10 14:14 | XMS_ITS | Patient Health Record ---
Author Organization [facility] [place] Address [address] [place] [address] Support Name Relationship Address Phone DALIA BAEZ Guarantor Unknown Reason For Referral No Information Plan Of Treatment No Information Insurance Providers Payer Name Payer Address Payer Phone Subscriber Number Group Number Insured Name Patient Relationship to Insured Coverage Start Date Coverage End Date [facility] [address] [place] [phone] [id number] DALIA BAEZ Self - patient is the insured
--- OUTSIDE RECORDS SUMMARY | 2025-02-10 14:14 | XMS_ITS | Patient Health Record ---
Author Organization [facility] Address [address] [place] [address] Care Team Providers Care Hydrometer Calibrator Name Role Phone Raymon Castle Primary Care Provider Reason For Referral No Information Plan Of Treatment No Information Insurance Providers Payer Name Payer Address Payer Phone Subscriber Number Group Number Insured Name Patient Relationship to Insured Coverage Start Date Coverage End Date [place] C3 [address] [place], [place] [id number] [place] Self - patient is the insured 2
== END 2025-02-10 14:20 | disposition home or self-care (01) ==
LOC: HO.HMCFMS 13:43
PROVIDERS: PCP Family Medicine; Visit Provider Student in an Organized Health Care Education/Training Program
DX: Z86.19 Personal history of other infectious and parasitic diseases (principal); K76.0 Fatty (change of) liver, not elsewhere classified; E88.810 Metabolic syndrome; B35.3 Tinea pedis; Z98.890 Other specified postprocedural states